=== PATIENT | female | born 1970 | race African-American/Black ===

== ENCOUNTER 2016-06-13 11:10 | Inpatient (IN) | payer OTHER ==
[~2016-06-13] VITALS: Ht 162.6 cm; Wt 160.0 kg
[~2016-06-13 11:10] MED LIST: CARV12.5 PO; CLIN1CAP5 PO; FURO1TAB62 PO; GLIP5TAB8 PO; HYDR-3533 PO; IBUP800T23 PO; MAGICADU2 SWISH-SWAL; SIMV40TA PO
--- NOTE | 2016-06-13 11:25 | PD ---
HPI Chief Complaint: flank pain Time Seen by Provider: 11:25 Travel History International Travel<30 days: No Contact w/Intl Traveler<30days: No History of Present Illness HPI 46-year-old female with PMH of HTN, HLD, T2DM presents to the ED via EMS for evaluation of 3 day history of constant right-sided flank pain. Gradual onset. She endorses accompanying chills, nausea and right upper quadrant abdominal pain. Patient states this pain is similar to previous urinary tract infection. Also complains of increased swelling of the left lower extremity. Endorses increased walking daily. She denies chest pain, shortness of breath, anorexia, changes in bowel habits, dysuria. She takes 20 mg Lasix daily. Primary care provider is Dr. Tuttle. [facility] Past Medical History Cardiovascular Problems: Yes (HTN) High Cholesterol: Yes Diabetes: Yes Diminished Hearing: No Hypertension: Yes Tubal Ligation: Yes Past Surgical History Section: Yes Social History Alcohol Use: No Tobacco Use: No Substance Use: No Allergies-Medications (Allergen,Severity, Reaction): Coded Allergies: No Known Allergies (Unverified , 02/22/16) Reported Meds & Prescriptions Reported Meds & Active Scripts Active Reported Glipizide 5 Mg Tab 2.5 Mg PO BIDAC Take 30 minutes before a meal Simvastatin 40 Mg Tab 40 Mg PO HS Lasix (Furosemide) 20 Mg Tab 20 Mg PO DAILY Coreg (Carvedilol) 12.5 Mg Tab 12.5 Mg PO BID Review of Systems Except as stated in HPI: all other systems reviewed are Neg Physical Exam Narrative GENERAL: Well-developed obese black female lying on stretcher in no acute distress.. SKIN: Focused skin assessment warm/dry. HEAD: Normocephalic. EYES: No scleral icterus. No injection or drainage. NECK: Supple, trachea midline. No JVD or lymphadenopathy. CARDIOVASCULAR: Regular rate and rhythm without murmurs, gallops, or rubs. RESPIRATORY: Breath sounds clear and equal bilaterally. No accessory muscle use. GASTROINTESTINAL: Abdomen soft, protuberant, nondistended. Tender to palpation on the right upper quadrant. Active bowel sounds. MUSCULOSKELETAL: No cyanosis. 2+ edema in the bilateral lower extremities. Left greater than right. Left side is erythematous, warm, tender to palpation. Positive Homans sign. BACK: No obvious deformity. ++ CVA tenderness. Data Data Last Documented VS Vital Signs Date Time Temp Pulse Resp B/P Pulse Ox O2 Delivery O2 Flow Rate FiO2 06/13/16 15:22 100 Room Air 06/13/16 15:17 99.7 94 18 130/59 Orders Complete Blood Count With Diff (06/13/16 11:37) Comprehensive Metabolic Panel (06/13/16 11:37) Lipase (06/13/16 11:37) Urinalysis - C+S If Indicated (06/13/16 11:37) Ct Abd/Pel W/O Iv Contrast (06/13/16 11:37) Iv Access Insert/Monitor (06/13/16 11:37) Ecg Monitoring (06/13/16 11:37) Oximetry (06/13/16 11:37) Morphine Inj (Morphine Inj) (06/13/16 11:45) Ondansetron Inj (Zofran Inj) (06/13/16 11:45) Sodium Chlor 0.9% 1000 Ml Inj (Ns 1000 M (06/13/16 11:37) Sodium Chloride 0.9% Flush (Ns Flush) (06/13/16 11:45) Us Leg Venous Doppler (06/13/16 11:37) Lactic Acid Sepsis Protocol (06/13/16 15:35) Piperacil-Tazo 4.5 Gm Premix (Zosyn 4.5 (06/13/16 15:36) Vancomycin Inj (Vancomycin Inj) (06/13/16 15:36) Acetaminophen (Tylenol) (06/13/16 15:45) Sodium Chlor 0.9% 1000 Ml Inj (Ns 1000 M (06/13/16 15:36) Sodium Chlor 0.9% 1000 Ml Inj (Ns 1000 M (06/13/16 15:36) Sodium Chlor 0.9% 1000 Ml Inj (Ns 1000 M (06/13/16 15:36) Carvedilol (Coreg) (06/13/16 21:00) Pravastatin (Pravachol) (06/13/16 21:00) Blood Culture (06/13/16 16:13) Code Status (06/13/16 16:11) Vital Signs (Adult) Q4H (06/13/16 16:11) Activity Oob Ad Sara (06/13/16 16:11) Bedside Glucose ADRIAN.AC&HS (06/13/16 16:11) Salon Customer Experience Specialist / Telemetry .CONTINUOUS (06/13/16 16:11) Intake + Output ADRIAN.QSHIFT (06/13/16 16:11) ^ Notify Dr: Other (06/13/16 16:11) Diet 1800 Ada Cons Carb (06/13/16 Dinner) Diet Heart Healthy (06/13/16 Dinner) Sodium Chlor 0.9% 1000 Ml Inj (Ns 1000 M (06/13/16 16:11) Sodium Chloride 0.9% Flush (Ns Flush) (06/13/16 16:15) Sodium Chloride 0.9% Flush (Ns Flush) (06/13/16 21:00) Acetaminophen (Tylenol) (06/13/16 16:15) Ondansetron Inj (Zofran Inj) (06/13/16 16:15) Bisacodyl Supp (Dulcolax Supp) (06/13/16 16:15) Docusate Sodium (Colace) (06/13/16 16:15) Basic Metabolic Panel (Bmp) (06/14/16 06:00) Complete Blood Count With Diff (06/14/16 06:00) Prothrombin Time / Inr (Pt) (06/14/16 06:00) Enoxaparin Inj (Lovenox Inj) (06/13/16 16:15) Naloxone Inj (Narcan Inj) (06/13/16 16:15) Admit Order (Ed Use Only) (06/13/16 ) Admit To Inpatient (06/13/16 ) Sodium Chloride 0.9% Flush (Ns Flush) (06/13/16 16:15) Sodium Chloride 0.9% Flush (Ns Flush) (06/13/16 21:00) Naloxone Inj (Narcan Inj) (06/13/16 16:15) Inpatient Certification (06/13/16 ) Vancomycin Consult Pharmacy (Vancomycin (06/13/16 16:15) Piperacil-Tazo 3.375 Gm Premix (Zosyn 3. (06/13/16 16:15) Labs Laboratory Tests Test 06/13/16 06/13/16 15:05 15:55 White Blood Count 21.0 TH/MM3 Red Blood Count 4.59 MIL/MM3 Hemoglobin 11.9 GM/DL Hematocrit 37.2 % Mean Corpuscular Volume 81.1 FL Mean Corpuscular Hemoglobin 26.0 PG Mean Corpuscular Hemoglobin 32.1 % Concent Red Cell Distribution Width 15.6 % Platelet Count 196 TH/MM3 Mean Platelet Volume 9.7 FL Neutrophils (%) (Auto) 88.9 % Lymphocytes (%) (Auto) 7.6 % Monocytes (%) (Auto) 3.2 % Eosinophils (%) (Auto) 0.0 % Basophils (%) (Auto) 0.3 % Neutrophils # (Auto) 18.6 TH/MM3 Lymphocytes # (Auto) 1.6 TH/MM3 Monocytes # (Auto) 0.7 TH/MM3 Eosinophils # (Auto) 0.0 TH/MM3 Basophils # (Auto) 0.1 TH/MM3 CBC Comment DIFF FINAL Differential Comment Sodium Level 134 MEQ/L Potassium Level 3.7 MEQ/L Chloride Level 100 MEQ/L Carbon Dioxide Level 25.7 MEQ/L Anion Gap 8 MEQ/L Blood Urea Nitrogen 9 MG/DL Creatinine 0.98 MG/DL Estimat Glomerular Filtration 75 ML/MIN Rate Random Glucose 287 MG/DL Calcium Level 9.3 MG/DL Total Bilirubin 1.1 MG/DL Aspartate Amino Transf 7 U/L (AST/SGOT) Alanine Aminotransferase 14 U/L (ALT/SGPT) Alkaline Phosphatase 79 U/L Total Protein 7.7 GM/DL Albumin 3.0 GM/DL Lipase 65 U/L Lactic Acid Level 2.0 mmol/L MDM Medical Decision Making Medical Screen Exam Complete: Yes Emergency Medical Condition: Yes Differential Diagnosis Pyelonephritis versus nephroureterolithiasis versus cholecystitis versus DVT versus dependent edema versus cellulitis versus other Narrative Course 46-year-old female with PMH of HTN, HLD, T2DM presents to the ED via EMS for evaluation of 3 day history of constant right-sided flank pain. Gradual onset, accompanied by chills, nausea and right upper quadrant abdominal pain. Also complains of increased swelling of the left lower extremity. Endorses increased walking daily. She denies chest pain, shortness of breath, anorexia, changes in bowel habits, dysuria. PCP is Dr. Tuttle. Vitals reviewed. Physical exam reveals a nontoxic appearing obese black female in no acute distress. There is RUQ, right flank and right CVA tenderness to palpation. There is erythema, warmth, 2+ edema in BLE, L>>R. ++ left sided Hohmann sign. Otherwise unremarkable. 1 liter NS fluid bolus, 4 mg morphine, 4 mg zofran IV. CBC: WBC 21 with left shift CMP: glucose 287 Lipase: 65 Lactic: 2.0 UA: pending CT abd/pelvis: 1. No evidence of acute abdominal or pelvic process. No masses identified. 2. Uterine fibroids. Results per radiology read. US of LLE: negative for DVT per radiology read. Patient meets sepsis criteria. Additional fluid bolus, blood cultures, Vancomycin and Zosyn ordered. On recheck the patient is sleeping on the stretcher. She reports "some" improvement of her pain. I discussed the results of the lab work with the patient. She is agreeable to admission. Call placed to [facility]. Dr. Sherwood spoke with Dr. Thompson who agrees to accept the patient to the medicine service. Please see medicine notes for disposition. Sepsis Criteria SIRS Criteria (2 or more): Heart rate over 90, WBC > 11732, < 4000 or > 10% bands Sepsis Criteria (SIRS+source): Infect source susp/known Diagnosis Primary Impression: Cellulitis of left lower extremity Additional Impression: Sepsis Qualified Code: A41.9 - Sepsis, due to unspecified organism Ashia León Jun 13, 2016 11:25
[2016-06-13] MEDS ORDERED: SODIUM CHLOR 0.9% 1000 ML INJ 1,000 ML IV SCH (11:37)
[2016-06-13] MEDS ORDERED: ONDANSETRON HCL 4 MG/2 ML VIAL IVP ONE (11:45)
[2016-06-13] MEDS ORDERED: SODIUM CHLORIDE 0.9% FLUSH 10 ML FLUSH IV FLUSH PRN ×3 (11:45→16:15)
[2016-06-13] MEDS ORDERED: MORPHINE SULFATE 4 MG/ML INJ IV PUSH ONE (11:45)
--- NOTE | 2016-06-13 12:40 | RADRPT ---
EXAM DATE/TIME: 06/13/2016 11:59 [facility] COMPARISON: No previous studies available for comparison. INDICATIONS : Left leg edema and pain. MEDICAL HISTORY : Hypercholesterolemia. Hypertension. Diabetes. SURGICAL HISTORY : Tubal ligation. section. ENCOUNTER: Initial ACUITY: 1 day PAIN SCORE: 8/10 LOCATION: Left leg. TECHNIQUE: Venous ultrasound of the leg was performed from the inguinal ligament to the proximal calf. Real-ashkan e, color Doppler and spectral tracing, compression and augmentation techniques were used. FINDINGS: There is normal compressibility of the deep venous system from the inguinal region to the proximal ca lf. No echogenic clot is seen in the lumen of the common femoral, femoral, popliteal, and posterior tibial veins. There is a normal response of the venous system to proximal and distal augmentation an d respiration. CONCLUSION: No evidence of left lower extremity DVT. Cesar Emanuel MD on June 13, 2016 at 12:37 Board Certified Radiologist. This report was verified electronically.
--- NOTE | 2016-06-13 13:40 | RADRPT ---
EXAM DATE/TIME: 06/13/2016 12:47 [facility] COMPARISON: No previous studies available for comparison. INDICATIONS : Right upper quadrant and flank pain ORAL CONTRAST: No oral contrast ingested. RADIATION DOSE: 33.87 CTDIvol (mGy) MEDICAL HISTORY : Hypertension. Diabetes SURGICAL HISTORY : Tubal ligation. ENCOUNTER: Initial ACUITY: 3 days PAIN SCALE: 5/10 LOCATION: Right flank TECHNIQUE: Volumetric scanning of the abdomen and pelvis was performed. Using automated exposure control and ad justment of the mA and/or kV according to patient size, radiation dose was kept as low as reasonably achievable to obtain optimal diagnostic quality images. FINDINGS: The visualized portion of the liver and spleen are normal. The gallbladder and pancreas are unremarka ble. No intrahepatic or extrahepatic ductal dilatation is seen. The adrenal glands and kidneys appear normal bilaterally. No hydronephrosis or mass lesions are identified. Multiple phleboliths are seen in the apparent region as well as within the pelvis. No abnormally enlarged lymph nodes are identifie d. The uterus is enlarged measuring 10.6 x 10 CM characteristic of fibroids. No free fluid is identified . There is diastases of the rectus muscles above the symphysis. CONCLUSION: 1. No evidence of acute abdominal or pelvic process. No masses are identified. 2. Uterine fibroids Jamal Contreras MD on June 13, 2016 at 13:32 Board Certified Radiologist. This report was verified electronically.
[2016-06-13 15:17] VITALS: BP 130/59; PULSE 94; RESP 18; TEMP 99.7; O2SAT 100
[2016-06-13 15:22] VITALS: O2SAT 100
[2016-06-13 15:32] LABS: AUTOMATED NEUTROPHIL # 18.6 TH/MM3 (1.8-7.7); BASOPHIL # 0.1 TH/MM3 (0-0.2); BASOPHIL % 0.3 % (0.0-2.0); HEMATOCRIT 37.2 % (35.0-46.0); HEMO FLAGS DIFF FINAL; LYMPH % 7.6 % (9.0-44.0); LYMPHOCYTE # 1.6 TH/MM3 (1.0-4.8); MEAN CELL VOLUME 81.1 FL (80.0-100.0); MEAN CORPUSCULAR HGB CONC 32.1 % (32.0-36.0); MONO % 3.2 % (0.0-8.0); NEUT % 88.9 % (16.0-70.0); PLATELET COUNT 196 TH/MM3 (150-450); RED BLOOD COUNT 4.59 MIL/MM3 (4.00-5.30); RED CELL DISTRIBUTION WIDTH 15.6 % (11.6-17.2)
[2016-06-13] MEDS ORDERED: PIPERACIL-TAZO 4.5 GM PREMIX 100 ML IV STA (15:36)
[2016-06-13] MEDS ORDERED: SODIUM CHLOR 0.9% 1000 ML INJ 1,000 ML IV ONE ×3 (15:36)
[2016-06-13] MEDS ORDERED: VANCOMYCIN INJ 1,000 MG in SODIUM CHLOR 0.9% 250 ML INJ 250 ML IV STA (15:36)
[2016-06-13] MEDS ORDERED: ACETAMINOPHEN 325 MG TAB PO ONE (15:45)
--- NOTE | 2016-06-13 15:48 | PD ---
Physical Exam Date Seen by Provider: Jun 13, 2016 Time Seen by Provider: 15:30 Narrative This is a 46-year-old female with history of hypertension, type 2 diabetes, hyperlipidemia, who presents today with left sided flank pain as well as left sided lower extremity pain and swelling and redness. The patient states that it started swelling yesterday. She denies any fevers although states that she has been warm and normal. Data Data Last Documented VS Vital Signs Date Time Temp Pulse Resp B/P Pulse Ox O2 Delivery O2 Flow Rate FiO2 06/13/16 15:22 100 Room Air 06/13/16 15:17 94 18 130/59 Orders Complete Blood Count With Diff (06/13/16 11:37) Comprehensive Metabolic Panel (06/13/16 11:37) Lipase (06/13/16 11:37) Urinalysis - C+S If Indicated (06/13/16 11:37) Ct Abd/Pel W/O Iv Contrast (06/13/16 11:37) Iv Access Insert/Monitor (06/13/16 11:37) Ecg Monitoring (06/13/16 11:37) Oximetry (06/13/16 11:37) Morphine Inj (Morphine Inj) (06/13/16 11:45) Ondansetron Inj (Zofran Inj) (06/13/16 11:45) Sodium Chlor 0.9% 1000 Ml Inj (Ns 1000 M (06/13/16 11:37) Sodium Chloride 0.9% Flush (Ns Flush) (06/13/16 11:45) Us Leg Venous Doppler (06/13/16 11:37) Lactic Acid Sepsis Protocol (06/13/16 15:35) Piperacil-Tazo 4.5 Gm Premix (Zosyn 4.5 (06/13/16 15:36) Vancomycin Inj (Vancomycin Inj) (06/13/16 15:36) Acetaminophen (Tylenol) (06/13/16 15:45) Sodium Chlor 0.9% 1000 Ml Inj (Ns 1000 M (06/13/16 15:36) Sodium Chlor 0.9% 1000 Ml Inj (Ns 1000 M (06/13/16 15:36) Sodium Chlor 0.9% 1000 Ml Inj (Ns 1000 M (06/13/16 15:36) Labs Laboratory Tests Test 06/13/16 15:05 White Blood Count 21.0 TH/MM3 Red Blood Count 4.59 MIL/MM3 Hemoglobin 11.9 GM/DL Hematocrit 37.2 % Mean Corpuscular Volume 81.1 FL Mean Corpuscular Hemoglobin 26.0 PG Mean Corpuscular Hemoglobin 32.1 % Concent Red Cell Distribution Width 15.6 % Platelet Count 196 TH/MM3 Mean Platelet Volume 9.7 FL Neutrophils (%) (Auto) 88.9 % Lymphocytes (%) (Auto) 7.6 % Monocytes (%) (Auto) 3.2 % Eosinophils (%) (Auto) 0.0 % Basophils (%) (Auto) 0.3 % Neutrophils # (Auto) 18.6 TH/MM3 Lymphocytes # (Auto) 1.6 TH/MM3 Monocytes # (Auto) 0.7 TH/MM3 Eosinophils # (Auto) 0.0 TH/MM3 Basophils # (Auto) 0.1 TH/MM3 CBC Comment DIFF FINAL Differential Comment MDM Medical Record Reviewed: Yes Supervised Visit with SCOTTY: Yes Differential Diagnosis 46-year-old female with history of hypertension, hyperlipidemia, type 2 diabetes mellitus, and presents today with complaints of right sided flank pain and left lower extremity swelling and redness and pain. The patient had an ultrasound that showed no evidence of acute DVT noted in her left lower extremity. The patient has what appears to be cellulitis. Her white count is 21,000. Pulse is greater than 90. She does meet SIRS criteria at this time. She'll be started on Zosyn and Vanco. CT scan of the and pelvis shows no evidence of acute findings. We're still waiting her LFTs and urinalysis results. Sepsis Criteria SIRS Criteria (2 or more): Heart rate over 90, WBC > 66740, < 4000 or > 10% bands Sepsis Criteria (SIRS+source): Infect source susp/known Diagnosis Primary Impression: Cellulitis of left lower extremity Additional Impressions: Right flank pain Right upper quadrant pain Diabetes mellitus Morbid obesity Boyd Sherwood MD Jun 13, 2016 15:48
[2016-06-13 16:15] LABS: ALT (GPT) 14 U/L (10-53); ANION GAP 8 MEQ/L (5-15); AST (GOT) 7 U/L (15-37); BICARBONATE 25.7 MEQ/L (21.0-32.0); BLOOD UREA NITROGEN 9 MG/DL (7-18); CHLORIDE 100 MEQ/L (98-107); GLOMERULAR FILTRATION RATE 75 ML/MIN (>89); POTASSIUM 3.7 MEQ/L (3.5-5.1); SODIUM (NA) 134 MEQ/L (136-145)
[2016-06-13] MEDS ORDERED: BISACODYL 10 MG SUPP PR PRN (16:15)
[2016-06-13] MEDS ORDERED: Vancomycin Consult Pharmacy 1 EA OTHER SCH (16:15)
[2016-06-13] MEDS ORDERED: ACETAMINOPHEN 325 MG TAB PO PRN (16:15)
[2016-06-13] MEDS ORDERED: NALOXONE HCL 0.4 MG/ML AMP IV PRN ×2 (16:15)
[2016-06-13 16:17] LABS: ALKALINE PHOSPHATASE 79 U/L (45-117); TOTAL BILIRUBIN ADULT 1.1 MG/DL (0.2-1.0)
--- NOTE | 2016-06-13 16:19 | HHI.HP ---
[facility] M.D. Admission Diagnosis sepsis, cellulitis LLE Diagnoses: Chief Complaint: left Leg Cellulitis Travel History International Travel<30 Days: No Contact w/Intl Traveler <30 Da: No Traveled to Known Affected Are: No History of Present Illness 46-year-old female with PMH of HTN, HLD, T2DM presents to the ED via EMS for evaluation of 3 day history of constant right-sided flank pain. Gradual onset. She endorses accompanying chills, nausea and right upper quadrant abdominal pain. Patient states this pain is similar to previous urinary tract infection. Also complains of increased swelling of the left lower extremity. Endorses increased walking daily. She denies chest pain, shortness of breath, anorexia, changes in bowel habits, dysuria. She takes 20 mg Lasix daily. Primary care provider is Dr. Tuttle. As per patient states she woke up this morning with left leg pain and was erythematous and with worsening edema, she went to see her PCP who sent her to ER for evaluation. she has low grade fever. Past Family Social History Past Medical History Hypertension Hyperlipidemia DM II Past Surgical History Tubal Ligation C Section Reported Medications Reported Meds & Active Scripts Active Reported Glipizide 5 Mg Tab 2.5 Mg PO BIDAC Take 30 minutes before a meal Simvastatin 40 Mg Tab 40 Mg PO HS Lasix (Furosemide) 20 Mg Tab 20 Mg PO DAILY Coreg (Carvedilol) 12.5 Mg Tab 12.5 Mg PO BID Allergies: Coded Allergies: No Known Allergies (Unverified , 02/22/16) Active Ordered Medications Current Medications Medications (Trade) Dose Ordered Sig/Maykel Route Start Time Stop Time Status Last Admin Sodium Chloride 2 ml 2 ml UNSCH PRN IV FLUSH 06/13/16 11:45 Sodium Chloride 1,000 ml @ 1,000 mls/hr Q1H ONCE IV 06/13/16 15:36 06/13/16 16:35 06/13/16 15:51 Sodium Chloride 1,000 ml @ 1,000 mls/hr Q1H ONCE IV 06/13/16 15:36 06/13/16 16:35 (NS 1000 ml Inj) 1,000 ml @ 1,000 mls/hr Q1H ONCE IV 06/13/16 15:36 06/13/16 16:35 (Coreg) 12.5 mg BID PO 06/13/16 21:00 Pravastatin Sodium 80 mg 80 mg HS PO 06/13/16 21:00 (NS 1000 ml Inj) 1,000 ml @ 100 mls/hr Q10H IV 06/13/16 16:11 UNV (NS Flush) 2 ml UNSCH PRN IV FLUSH 06/13/16 16:15 UNV (NS Flush) 2 ml BID IV FLUSH 06/13/16 21:00 UNV (Tylenol) 650 mg Q4H PRN PO 06/13/16 16:15 UNV (Zofran Inj) 4 mg Q6H PRN IVP 06/13/16 16:15 UNV (Dulcolax Supp) 10 mg DAILY PRN CO 06/13/16 16:15 UNV (Colace) 100 mg Q12H PO 06/13/16 16:15 UNV (Lovenox Inj) 40 mg Q24H SQ 06/13/16 16:15 UNV (Narcan Inj) 0.4 mg UNSCH PRN IV 06/13/16 16:15 UNV (NS Flush) 2 ml UNSCH PRN IV FLUSH 06/13/16 16:15 UNV (NS Flush) 2 ml BID IV FLUSH 06/13/16 21:00 UNV (Narcan Inj) 0.4 mg UNSCH PRN IV 06/13/16 16:15 UNV Family History Mother with DM II and Hypertension Social History Lives with her and denies any toxic habit. Physical Exam Vital Signs Vital Signs Date Time Temp Pulse Resp B/P Pulse Ox O2 Delivery O2 Flow Rate FiO2 06/13/16 15:22 100 Room Air 06/13/16 15:17 99.7 94 18 130/59 100 Room Air Physical Exam GENERAL: Morbid Obese patient in no acute distress. SKIN: Focused skin assessment warm/dry. HEAD: Normocephalic. EYES: No scleral icterus. No injection or drainage. NECK: Supple, trachea midline. No JVD or lymphadenopathy. CARDIOVASCULAR: Regular rate and rhythm without murmurs, gallops, or rubs. RESPIRATORY: Breath sounds clear and equal bilaterally. No accessory muscle use. GASTROINTESTINAL: Abdomen soft, protuberant, nondistended. Tender to palpation on the right upper quadrant. Active bowel sounds. MUSCULOSKELETAL: No cyanosis. 2+ edema in the bilateral lower extremities. Left greater than right. Left side is erythematous, warm, tender to palpation. Positive Homans sign. BACK: No obvious deformity. ++ CVA tenderness. Laboratory Laboratory Tests Test 06/13/16 15:05 White Blood Count 21.0 Red Blood Count 4.59 Hemoglobin 11.9 Hematocrit 37.2 Mean Corpuscular Volume 81.1 Mean Corpuscular Hemoglobin 26.0 Mean Corpuscular Hemoglobin 32.1 Concent Red Cell Distribution Width 15.6 Platelet Count 196 Mean Platelet Volume 9.7 Neutrophils (%) (Auto) 88.9 Lymphocytes (%) (Auto) 7.6 Monocytes (%) (Auto) 3.2 Eosinophils (%) (Auto) 0.0 Basophils (%) (Auto) 0.3 Neutrophils # (Auto) 18.6 Lymphocytes # (Auto) 1.6 Monocytes # (Auto) 0.7 Eosinophils # (Auto) 0.0 Basophils # (Auto) 0.1 CBC Comment DIFF FINAL Differential Comment Sodium Level 134 Potassium Level 3.7 Chloride Level 100 Carbon Dioxide Level 25.7 Anion Gap 8 Blood Urea Nitrogen 9 Creatinine 0.98 Estimat Glomerular Filtration 75 Rate Random Glucose 287 Calcium Level 9.3 Aspartate Amino Transf 7 (AST/SGOT) Alanine Aminotransferase 14 (ALT/SGPT) Albumin 3.0 Lipase 65 Result Diagram: 06/13/16 1505 06/13/16 1505 Imaging Last Impressions Lower Extremity Ultrasound 06/13/16 1137 Signed Impressions: Service Date/Time: Monday, June 13, 2016 11:59 - CONCLUSION: No evidence of left lower extremity DVT. Cesar Emanuel MD Abdomen/Pelvis CT 06/13/16 1137 Signed Impressions: Service Date/Time: Monday, June 13, 2016 12:47 - CONCLUSION: 1. No evidence of acute abdominal or pelvic process. No masses are identified. 2. Uterine fibroids Jamal Contreras MD Assessment and Plan Problem List: (1) Cellulitis of left lower extremity ICD Code: L03.116 Status: Acute (2) Diabetes mellitus ICD Code: E11.9 Status: Acute (3) Morbid obesity ICD Code: E66.01 Status: Acute (4) Abdominal pain ICD Code: R10.9 Status: Acute Assessment and Plan 1. Sepsis/Cellulitis of the left lower extremity she has Leukocytosis with left shift, tachycardia, known source of infection, has left leg edema and cellulitis low grade fever, was started on Vancomycin and Zosyn and following blood cultures, US of LLE: negative for DVT per radiology read. 2. Questioned possible foot fracture asked for foot x ray and following result 3. Morbid Obesity will weight loss warranted. recommended diet and exercise as outpatient 4. Abdominal pain had CT abd/pelvis: 1. No evidence of acute abdominal or pelvic process. No masses identified. 2. Uterine fibroids. Results per radiology read. 5. Hypertension to continue Home medicines 6. DM II continue sliding scale on hold Glipizide and continue diet for Diabetes. DVT prophylaxis with Lovenox. Code Status Full Code. Discussed Condition With Patient and ER specialist. Physician Certification 2 Midnight Certification Type: Admission for Inpatient Services Order for Inpatient Services The services are ordered in accordance with Medicare regulations or non- Medicare payer requirements, as applicable. In the case of services not specified as inpatient-only, they are appropriately provided as inpatient services in accordance with the 2-midnight benchmark. Estimated LOS (days): 4 days is the estimated time the patient will need to remain in the hospital, assuming treatment plan goals are met and no additional complications. Post-Hospital Plan: Home Jason Leone MD Jun 13, 2016 16:19
[2016-06-13] MEDS ORDERED: POTASSIUM CHLORIDE 20 MEQ CONTROLLED RELEASE TAB PO ONE (17:15)
--- NOTE | 2016-06-13 17:45 | RADRPT ---
EXAM DATE/TIME: 06/13/2016 17:16 [facility] COMPARISON: No previous studies available for comparison. INDICATIONS : Left foot pain x 1 day no known injury. MEDICAL HISTORY : Hypertension. Diabetes SURGICAL HISTORY : Tubal ligation. ENCOUNTER: Initial ACUITY: 1 day PAIN SCORE: 8/10 LOCATION: Left Foot. FINDINGS: 3 views left foot. Bone alignment within normal limits. No evidence of fracture. Diffuse soft tissue edema. No evidence of bone erosion. Small plantar and Achilles calcaneal spurs. CONCLUSION: Diffuse soft tissue edema. No evidence of fracture. Cesar Emanuel MD on June 13, 2016 at 17:43 Board Certified Radiologist. This report was verified electronically.
[2016-06-13] MEDS ORDERED: MORPHINE SULFATE 4 MG/ML INJ IV ONE (18:00)
[2016-06-13 18:15] LABS: BLOOD, URINE NEG (NEG); COMMENT (UR) CULT NOT INDICATED; CULTURE IF INDICATED CULT NOT INDICATED; GLUCOSE,URINE 1000 mg/dL (NEG); KETONE, URINE NEG (NEG); MUCUS URINE FEW /lpf (OCC); NITRITE,URINE NEG (NEG); SQUAMOUS EPITHELIAL CELL URINE <1 /hpf (0-5); URINE COLOR YELLOW (YELLW/STRAW)
[2016-06-13 18:50] LABS: FREE T4 1.26 NG/DL (0.76-1.46); HDL CHOLESTEROL 80.6 MG/DL (40.0-60.0); LDL CHOLESTEROL 64 MG/DL (0-99)
[2016-06-13 18:53] VITALS: BP 116/53; PULSE 93; RESP 18; O2SAT 97
[2016-06-13 20:00] VITALS: BP 117/71; PULSE 92; RESP 20; TEMP 98.2; O2SAT 97
[2016-06-13] MEDS: ENOXAPARIN SODIUM 40 MG/0.4 ML SYRINGE SQ SCH (20:15)
[2016-06-13] MEDS: SODIUM CHLOR 0.9% 1000 ML INJ 1,000 ML IV SCH ×2 (20:16→21:46)
[2016-06-13 20:32] VITALS: BP 116/58; TEMP 98.9
[2016-06-13] MEDS: SODIUM CHLORIDE 0.9% FLUSH 10 ML FLUSH IV FLUSH SCH (21:00)
[2016-06-13] MEDS ORDERED: SODIUM CHLORIDE 0.9% FLUSH 10 ML FLUSH IV FLUSH SCH (21:00)
[2016-06-13] MEDS: DOCUSATE SODIUM 100 MG CAP PO SCH (21:45)
[2016-06-13] MEDS: CARVEDILOL 12.5 MG TAB PO SCH (21:46)
[2016-06-13] MEDS: INSULIN NovoLIN REGULAR SUPPLEMENTAL SCALE SQ SCH (21:46)
[2016-06-13] MEDS: PRAVASTATIN SOD 80 MG TAB PO SCH (21:46)
[2016-06-13] MEDS: PIPERACIL-TAZO 3.375 GM PREMIX 50 ML IV SCH (21:47)
[2016-06-13 21:54] VITALS: PULSE 93
[2016-06-13] MEDS ORDERED: VANCOMYCIN 1,000 MG/NS 250 ML IV STA ×2 (22:02)
[2016-06-13 22:10] LABS: HEMOGLOBIN A1a 0.9 %; HEMOGLOBIN A1b 2.6 %; HEMOGLOBIN Ao 77.7 %; HEMOGLOBIN LA1C 3.4 %; HEMOGLOBIN P3 5.4 %
[2016-06-13] MEDS: MORPHINE SULFATE 4 MG/ML INJ IV PRN (23:04)
[2016-06-14] MEDS: PIPERACIL-TAZO 3.375 GM PREMIX 50 ML IV SCH ×2 (04:03→11:32)
[2016-06-14 04:56] LABS: INTERNATIONAL NORMALIZED RATIO 1.2 RATIO; PROTHROMBIN TIME - PATIENT 12.8 SEC (9.8-11.6)
[2016-06-14 05:18] LABS: AUTOMATED NEUTROPHIL # 11.7 TH/MM3 (1.8-7.7); BASOPHIL % 0.3 % (0.0-2.0); EOSINOPHIL # 0.1 TH/MM3 (0-0.4); EOSINOPHIL % 1.1 % (0.0-4.0); HEMATOCRIT 30.8 % (35.0-46.0); HEMO FLAGS DIFF FINAL; LYMPH % 9.5 % (9.0-44.0); LYMPHOCYTE # 1.3 TH/MM3 (1.0-4.8); MEAN CELL VOLUME 82.1 FL (80.0-100.0); MEAN CORPUSCULAR HEMOGLOBIN 26.5 PG (27.0-34.0); MEAN CORPUSCULAR HGB CONC 32.3 % (32.0-36.0); MONO % 5.4 % (0.0-8.0); NEUT % 83.7 % (16.0-70.0); PLATELET COUNT 194 TH/MM3 (150-450); RED BLOOD COUNT 3.76 MIL/MM3 (4.00-5.30); RED CELL DISTRIBUTION WIDTH 15.5 % (11.6-17.2)
[2016-06-14 05:23] LABS: BICARBONATE 22.8 MEQ/L (21.0-32.0); POTASSIUM 4.1 MEQ/L (3.5-5.1)
[2016-06-14] MEDS: INSULIN NovoLIN REGULAR SUPPLEMENTAL SCALE SQ SCH ×4 (05:36→20:46)
[2016-06-14] MEDS: DOCUSATE SODIUM 100 MG CAP PO SCH ×2 (07:39→20:34)
[2016-06-14] MEDS: SODIUM CHLORIDE 0.9% FLUSH 10 ML FLUSH IV FLUSH SCH ×2 (07:42→20:36)
[2016-06-14 08:00] VITALS: BP 103/59; PULSE 89; RESP 20; TEMP 96.4; O2SAT 99
--- NOTE | 2016-06-14 08:11 | HHI.PR ---
Subjective Remarks 46-year-old female with PMH of HTN, HLD, T2DM presents to the ED via EMS for evaluation of 3 day history of constant right-sided flank pain. Gradual onset. She endorses accompanying chills, nausea and right upper quadrant abdominal pain. Patient states this pain is similar to previous urinary tract infection. Also complains of increased swelling of the left lower extremity. Endorses increased walking daily. She denies chest pain, shortness of breath, anorexia, changes in bowel habits, dysuria. She takes 20 mg Lasix daily. Primary care provider is Dr. Tuttle. Admitted with diagnosis of Left Leg Cellulitis was started on Vancomycin and Zosyn and asked for ID specialist consult there was not evidence of Left Leg DVT. Seen in her bedroom discussed with nurse Miss Ferraro appreciated input, no new issues, continue with exquisite pain on her left leg, afebrile, no nausea,vomit or diarrhea. Objective Vital Signs Date Time Temp Pulse Resp B/P Pulse Ox O2 Delivery O2 Flow Rate FiO2 06/13/16 21:54 93 06/13/16 20:32 98.9 90 16 116/58 98 06/13/16 20:00 98.2 92 20 117/71 97 06/13/16 18:53 93 18 116/53 97 Room Air 06/13/16 15:22 100 Room Air 06/13/16 15:17 99.7 94 18 130/59 100 Room Air I/O 06/13/16 06/13/16 06/13/16 06/14/16 06/14/16 06/14/16 07:00 15:00 23:00 07:00 15:00 23:00 Intake Total 1120 ml 765 ml Balance 1120 ml 765 ml Intake Oral 120 ml 0 ml IV Total 1000 ml 765 ml # Voids 1 1 Result Diagram: 06/14/16 0355 06/14/16 0418 Imaging Last Impressions Lower Extremity Ultrasound 06/13/167 Signed Impressions: Service Date/Time: Monday, June 13, 2016 11:59 - CONCLUSION: No evidence of left lower extremity DVT. Cesar Emanuel MD Abdomen/Pelvis CT 06/13/16 1137 Signed Impressions: Service Date/Time: Monday, June 13, 2016 12:47 - CONCLUSION: 1. No evidence of acute abdominal or pelvic process. No masses are identified. 2. Uterine fibroids Jamal Contreras MD Foot X-Ray 06/13/16 0000 Signed Impressions: Service Date/Time: Monday, June 13, 2016 17:16 - CONCLUSION: Diffuse soft tissue edema. No evidence of fracture. Cesar Emanuel MD Procedures No procedures performed to the patient Other Results Laboratory Tests Test 06/13/16 06/13/16 06/13/16 06/14/16 15:05 15:55 18:06 03:55 Hemoglobin A1c 9.8 % Total Bilirubin 1.1 MG/DL Aspartate Amino Transf 7 U/L (AST/SGOT) Alanine Aminotransferase 14 U/L (ALT/SGPT) Alkaline Phosphatase 79 U/L Total Protein 7.7 GM/DL Albumin 3.0 GM/DL Triglycerides Level 92 MG/DL Cholesterol Level 163 MG/DL LDL Cholesterol 64 MG/DL HDL Cholesterol 80.6 MG/DL Cholesterol/HDL Ratio 2.02 RATIO Lipase 65 U/L Free Thyroxine 1.26 NG/DL Thyroid Stimulating Hormone 1.240 uIU/ML 3rd Gen Lactic Acid Level 2.0 mmol/L Urine Color YELLOW Urine Turbidity HAZY Urine pH 5.0 Urine Specific [place] 1.025 Urine Protein NEG mg/dL Urine Glucose (UA) 1000 mg/dL Urine Ketones NEG mg/dL Urine Occult Blood NEG Urine Nitrite NEG Urine Bilirubin NEG Urine Urobilinogen LESS THAN 2.0 MG/DL Urine Leukocyte Esterase NEG Urine RBC LESS THAN 1 /hpf Urine WBC 1 /hpf Urine Squamous Epithelial <1 /hpf Cells Urine Mucus FEW /lpf Microscopic Urinalysis Comment CULT NOT INDICATED White Blood Count 14.0 TH/MM3 Red Blood Count 3.76 MIL/MM3 Hemoglobin 10.0 GM/DL Hematocrit 30.8 % Mean Corpuscular Volume 82.1 FL Mean Corpuscular Hemoglobin 26.5 PG Mean Corpuscular Hemoglobin 32.3 % Concent Red Cell Distribution Width 15.5 % Platelet Count 194 TH/MM3 Mean Platelet Volume 9.8 FL Neutrophils (%) (Auto) 83.7 % Lymphocytes (%) (Auto) 9.5 % Monocytes (%) (Auto) 5.4 % Eosinophils (%) (Auto) 1.1 % Basophils (%) (Auto) 0.3 % Neutrophils # (Auto) 11.7 TH/MM3 Lymphocytes # (Auto) 1.3 TH/MM3 Monocytes # (Auto) 0.8 TH/MM3 Eosinophils # (Auto) 0.1 TH/MM3 Basophils # (Auto) 0.0 TH/MM3 CBC Comment DIFF FINAL Differential Comment Prothrombin Time 12.8 SEC Prothromb Time International 1.2 RATIO Ratio Test 06/14/16 04:18 Sodium Level 138 MEQ/L Potassium Level 4.1 MEQ/L Chloride Level 106 MEQ/L Carbon Dioxide Level 22.8 MEQ/L Anion Gap 9 MEQ/L Blood Urea Nitrogen 9 MG/DL Creatinine 1.01 MG/DL Estimat Glomerular Filtration 72 ML/MIN Rate Random Glucose 221 MG/DL Calcium Level 7.8 MG/DL Objective Remarks GENERAL: Morbid Obese patient in no acute distress. SKIN: Focused skin assessment warm/dry. HEAD: Normocephalic. EYES: No scleral icterus. No injection or drainage. NECK: Supple, trachea midline. No JVD or lymphadenopathy. CARDIOVASCULAR: Regular rate and rhythm without murmurs, gallops, or rubs. RESPIRATORY: Breath sounds clear and equal bilaterally. No accessory muscle use. GASTROINTESTINAL: Abdomen soft, protuberant, nondistended. Tender to palpation on the right upper quadrant. Active bowel sounds. MUSCULOSKELETAL: No cyanosis.3+ edema, erythema and changes in calor and rubor on the left foot and ankle. Medications and IVs Current Medications Medications (Trade) Dose Ordered Sig/Maykel Route Start Time Stop Time Status Last Admin (Coreg) 12.5 mg BID PO 06/13/16 21:00 06/13/16 21:46 Pravastatin Sodium 80 mg 80 mg HS PO 06/13/16 21:00 06/13/16 21:46 (NS 1000 ml Inj) 1,000 ml @ 100 mls/hr Q10H IV 06/13/16 16:11 06/13/16 21:46 (Tylenol) 650 mg Q4H PRN PO 06/13/16 16:15 (Zofran Inj) 4 mg Q6H PRN IVP 06/13/16 16:15 (Dulcolax Supp) 10 mg DAILY PRN [place] 06/13/16 16:15 (Colace) 100 mg Q12H PO 06/13/16 21:00 06/14/16 07:39 (Lovenox Inj) 40 mg Q24H SQ 06/13/16 20:00 06/13/16 20:15 (NS Flush) 2 ml UNSCH PRN IV FLUSH 06/13/16 16:15 (NS Flush) 2 ml BID IV FLUSH 06/13/16 21:00 06/14/16 07:42 Naloxone HCl 0.4 mg 0.4 mg UNSCH PRN IV 06/13/16 16:15 Pharmacy Profile Note 0 ml @ 0 mls/hr UNSCH OTHER 06/13/16 16:15 Piperacillin Sod/ Tazobactam Sod 50 ml @ 100 mls/hr Q6H IV 06/13/16 22:00 06/14/16 04:03 (Vancomycin Inj/ NS 500 ml Inj) 515 ml @ 250 mls/hr Q12H IV 06/14/16 09:00 06/14/16 07:44 Miscellaneous Information SPECIFIC LAB TO BE ... ONCE ONCE XX 06/15/16 08:45 06/15/16 08:46 (Roxicodone) 10 mg Q4H PRN PO 06/13/16 22:45 06/14/16 07:40 (Morphine Inj) 4 mg Q3H PRN IV 06/13/16 22:45 06/13/16 23:04 (Roxicodone) 5 mg Q4H PRN PO 06/13/16 22:45 A/P Assessment and Plan 1. Sepsis/Cellulitis of the left lower extremity she has Leukocytosis with left shift, tachycardia, known source of infection, has left leg edema and cellulitis low grade fever, was started on Vancomycin and Zosyn and following blood cultures, US of LLE: negative for DVT per radiology read. also no signs of fracture, asked for ID specialist consult. 2. Ruled out Fracture. 3. Morbid Obesity will weight loss warranted. recommended diet and exercise as outpatient 4. Abdominal pain had CT abd/pelvis: 1. No evidence of acute abdominal or pelvic process. No masses identified. 2. Uterine fibroids. Results per radiology read. 5. Hypertension controlled was held her Coreg in am due to low blood pressure will follow and placed parameters. 6. DM II continue sliding scale, uncontrolled today, started on Levemir 10 units every 12 hours and continue scheduled Novolin 5 units pre meal, Hemoglobin A1C 9.8 Poorly controlled DM II. DVT prophylaxis with Lovenox. Infectious Disease specialist consult placed Blood culture Negative. Discussed with Patient and nurse. Code Status Full Code. Discharge Planning Expected in two days. Jason Leone MD Jun 14, 2016 08:11
[2016-06-14] MEDS ORDERED: VANCOMYCIN INJ 1,500 MG in SODIUM CHLORID 0.9% 500 ML INJ 500 ML IV SCH (09:00)
[2016-06-14] MEDS: CARVEDILOL 12.5 MG TAB PO SCH ×2 (09:00→20:35)
[2016-06-14] MEDS: INSULIN DETEMIR 100 UNITS/ML VIAL SQ SCH ×2 (09:00→20:46)
[2016-06-14] MEDS: INSULIN HUMAN REGULAR 1,000 UNITS/10 ML VIAL SQ SCH ×2 (11:40→17:00)
[2016-06-14 12:00] VITALS: BP 117/66; PULSE 89; RESP 17; TEMP 98; O2SAT 98
[2016-06-14] MEDS: SODIUM CHLOR 0.9% 1000 ML INJ 1,000 ML IV SCH ×2 (12:11→20:38)
--- NOTE | 2016-06-14 12:20 | PD.CONS ---
History of Present Illness Service Infectious disease Consult Requested By Dr Sanya Thompson Reason for Consult Evaluate patient with left lower extremity cellulitis Primary Care Physician Karen Tuttle M.D. Diagnoses: History of Present Illness Patient seen and examined. Records reviewed. Patient is a 46-year-old female presents to the hospital with an acute onset of swelling and pain in her left leg. Patient reportedly had some chills the night prior to admission. Patient had a prior doctor's appointment with her primary care physician for a yearly physical. Her primary care physician saw her leg and told her to go to the emergency room for further evaluation and treatment. As no documented fevers. In the emergency room, she also mentioned that she was having pain in her right lower quadrant that goes to her back. Has been going on for at least 3-4 days. She denies any dysuria or any frequency. Patient denies any prior history of trauma to her left lower extremity. She's been a diabetic but she doesn't really get any kind of care. She denies any sore throat or any respiratory complaint. She had some nausea on the day of admission but denies any vomiting. On presentation she has had normal temperatures. Her WBC was initially 21,000, and it's down to 14,000. Ultrasound did not show any DVT. She also had a CT of the abdomen and pelvis which was unremarkable. Urinalysis was normal. Adding IV vancomycin and Zosyn. She has no prior history of cellulitis in her lower extremity. Patient has chronic lower extremity edema. Infectious disease consultation is requested to evaluate the patient. Review of Systems Constitutional: COMPLAINS OF: Chills, DENIES: Fever, Night Sweats Eyes: DENIES: Eye pain Ears, nose, mouth, throat: DENIES: Vertigo, Oral lesions, Throat pain, Running Nose, Sinus Pain, Toothache Respiratory: DENIES: Cough, Shortness of breath Cardiovascular: DENIES: Chest pain, Palpitations, Syncope Gastrointestinal: COMPLAINS OF: Abdominal pain, Nausea, DENIES: Diarrhea, Vomiting, Difficulty Swallowing, Anorexia Genitourinary: DENIES: Urinary frequency, Urgency, Dysuria Musculoskeletal: COMPLAINS OF: Back pain, DENIES: Joint pain, Joint Swelling, Neck pain Integumentary: DENIES: Rash Immunologic/allergic: DENIES: Urticaria Neurologic: DENIES: Headache, Localized weakness Psychiatric: DENIES: Anxiety, Hallucinations Past Family Social History Allergies: Coded Allergies: No Known Allergies (Unverified , 02/22/16) Past Medical History Hypertension Hyperlipidemia DM II 4 pregnancies and section Past Surgical History Tubal Ligation C Section Active Ordered Medications Tylenol Dulcolax Coreg Colace Lovenox Insulin Morphine Zofran Oxycodone Zosyn Pravachol Vancomycin Social History , has 4 grown kids No smoking Alcohol abuse No illicit drugs Physical Exam Vital Signs Vital Signs Date Time Temp Pulse Resp B/P Pulse Ox O2 Delivery O2 Flow Rate FiO2 06/14/16 08:00 96.4 89 20 103/59 99 06/13/16 21:54 93 06/13/16 20:32 98.9 90 16 116/58 98 06/13/16 20:00 98.2 92 20 117/71 97 06/13/16 18:53 93 18 116/53 97 Room Air 06/13/16 15:22 100 Room Air 06/13/16 15:17 99.7 94 18 130/59 100 Room Air Physical Exam GENERAL: This is a morbidly obese, well-developed female, awake and alert, in no apparent distress. SKIN: Cool and dry. No generalized rash or ecchymosis. HEAD: Atraumatic. Normocephalic. No temporal or scalp tenderness. EYES: [place] conjunctivae. Pupils equal round and reactive. Extraocular motions intact. No scleral icterus. No injection or drainage. ENT: Nose without bleeding, or purulent drainage. Moist oral mucosa. Throat without erythema, tonsillar hypertrophy or exudate. Uvula midline. Airway patent. NECK: Trachea midline. No JVD or lymphadenopathy. Supple, nontender, no meningeal signs. CARDIOVASCULAR: Regular rate and rhythm without murmurs, gallops, or rubs. RESPIRATORY: Clear to auscultation. Breath sounds equal bilaterally. No wheezes , rales, or rhonchi. Decreased breath sounds at the bases. GASTROINTESTINAL: Abdomen obese, soft, non-tender, nondistended. Bowel sounds are present. She has a midline scar compatible with her surgical history. Difficult to examine for any organomegaly due to the size. No guarding or rebound. MUSCULOSKELETAL: Lower extremities without clubbing, cyanosis. HAs edema BILE. LLE has erythema in left leg. No joint effusion. No open wounds, has moisture between all toes L foot; R foot ok. No calf tenderness. NEUROLOGICAL: Awake and alert. Cranial nerves II through XII intact. Motor and sensory grossly within normal limits. Five out of 5 muscle strength in all muscle groups. Normal speech. PSYCH: Normal affect, calm and cooperative. LINE: PIV with no evidence of infection Laboratory Laboratory Tests Test 06/13/16 06/13/16 06/13/16 06/14/16 15:05 15:55 18:06 03:55 White Blood Count 21.0 14.0 Red Blood Count 4.59 3.76 Hemoglobin 11.9 10.0 Hematocrit 37.2 30.8 Mean Corpuscular Volume 81.1 82.1 Mean Corpuscular Hemoglobin 26.0 26.5 Mean Corpuscular Hemoglobin 32.1 32.3 Concent Red Cell Distribution Width 15.6 15.5 Platelet Count 196 194 Mean Platelet Volume 9.7 9.8 Neutrophils (%) (Auto) 88.9 83.7 Lymphocytes (%) (Auto) 7.6 9.5 Monocytes (%) (Auto) 3.2 5.4 Eosinophils (%) (Auto) 0.0 1.1 Basophils (%) (Auto) 0.3 0.3 Neutrophils # (Auto) 18.6 11.7 Lymphocytes # (Auto) 1.6 1.3 Monocytes # (Auto) 0.7 0.8 Eosinophils # (Auto) 0.0 0.1 Basophils # (Auto) 0.1 0.0 CBC Comment DIFF FINAL DIFF FINAL Differential Comment Sodium Level 134 Potassium Level 3.7 Chloride Level 100 Carbon Dioxide Level 25.7 Anion Gap 8 Blood Urea Nitrogen 9 Creatinine 0.98 Estimat Glomerular Filtration 75 Rate Random Glucose 287 Hemoglobin A1c 9.8 Calcium Level 9.3 Total Bilirubin 1.1 Aspartate Amino Transf 7 (AST/SGOT) Alanine Aminotransferase 14 (ALT/SGPT) Alkaline Phosphatase 79 Total Protein 7.7 Albumin 3.0 Triglycerides Level 92 Cholesterol Level 163 LDL Cholesterol 64 HDL Cholesterol 80.6 Cholesterol/HDL Ratio 2.02 Lipase 65 Free Thyroxine 1.26 Thyroid Stimulating Hormone 1.240 3rd Gen Lactic Acid Level 2.0 Urine Color YELLOW Urine Turbidity HAZY Urine pH 5.0 Urine Specific [place] 1.025 Urine Protein NEG Urine Glucose (UA) 1000 Urine Ketones NEG Urine Occult Blood NEG Urine Nitrite NEG Urine Bilirubin NEG Urine Urobilinogen LESS THAN 2.0 Urine Leukocyte Esterase NEG Urine RBC LESS THAN 1 Urine WBC 1 Urine Squamous Epithelial <1 Cells Urine Mucus FEW Microscopic Urinalysis Comment CULT NOT INDICATED Prothrombin Time 12.8 Prothromb Time International 1.2 Ratio Test 06/14/16 04:18 Sodium Level 138 Potassium Level 4.1 Chloride Level 106 Carbon Dioxide Level 22.8 Anion Gap 9 Blood Urea Nitrogen 9 Creatinine 1.01 Estimat Glomerular Filtration 72 Rate Random Glucose 221 Calcium Level 7.8 Date/Time Procedure Status Source Growth 06/13/16 16:15 Aerobic Blood Culture - Preliminary Resulted Blood Line NO GROWTH IN 1 DAY 06/13/16 16:15 Anaerobic Blood Culture - Preliminary Resulted Blood Line NO GROWTH IN 1 DAY Result Diagram: 06/14/16 0355 06/14/16 0418 Imaging RADIOLOGY STUDIES/FILMS REVIEWED Lower Extremity Ultrasound 06/13/16 1137 Signed Impressions: Service Date/Time: Monday, June 13, 2016 11:59 - CONCLUSION: No evidence of left lower extremity DVT. Cesar Emanuel MD Abdomen/Pelvis CT 06/13/16 1137 Signed Impressions: Service Date/Time: Monday, June 13, 2016 12:47 - CONCLUSION: 1. No evidence of acute abdominal or pelvic process. No masses are identified. 2. Uterine fibroids Jamal Contreras MD Foot X-Ray 06/13/16 0000 Signed Impressions: Service Date/Time: Monday, June 13, 2016 17:16 - CONCLUSION: Diffuse soft tissue edema. No evidence of fracture. Cesar Emanuel MD Assessment and Plan Assessment and Plan IMPRESSION Acute onset LLE redness, pain and swelling, with preceding chills typical of Strep infection - no open wounds - has moisture between toes and possible opening for infection Morbid obesity DM RECOMMENDATION IV Ancef Stop other Abx Patient instructed that she is to follow-up with a spray painting machine operator, to have regular care since she is diabetic and she is not really able to monitor both feet due to her obesity Patient also instructed that she needs to consider seriously about getting into a weight loss program which should help with her diabetes control Monitor progress If improving on Ancef, then she can be switched to oral Keflex and discharge, and complete treatment at home I will follow along with you Thank you for this consultation Discussed Condition With Explained plan recommendation to the patient Anya Victor MD Jun 14, 2016 12:20
[2016-06-14] MEDS: ceFAZolin 2 GM PREMIX 50 ML IV SCH ×2 (15:53→20:34)
[2016-06-14 16:00] VITALS: BP 121/63; PULSE 93; RESP 26; TEMP 97.1; O2SAT 99
[2016-06-14 20:00] VITALS: BP 115/63; PULSE 86; RESP 18; TEMP 98; O2SAT 97
[2016-06-14 20:03] VITALS: PULSE 91
[2016-06-14] MEDS: ENOXAPARIN SODIUM 40 MG/0.4 ML SYRINGE SQ SCH (20:34)
[2016-06-14] MEDS: PRAVASTATIN SOD 80 MG TAB PO SCH (20:35)
[2016-06-15] VITALS: BP 109/62; PULSE 82; RESP 17; TEMP 97.4; O2SAT 97
[2016-06-15] MEDS: ceFAZolin 2 GM PREMIX 50 ML IV SCH ×3 (04:39→20:25)
[2016-06-15] MEDS: INSULIN NovoLIN REGULAR SUPPLEMENTAL SCALE SQ SCH ×4 (04:43→20:29)
--- NOTE | 2016-06-15 07:44 | HHI.PR ---
Subjective Remarks 46-year-old female with PMH of HTN, HLD, T2DM presents to the ED via EMS for evaluation of 3 day history of constant right-sided flank pain. Gradual onset. She endorses accompanying chills, nausea and right upper quadrant abdominal pain. Patient states this pain is similar to previous urinary tract infection. Also complains of increased swelling of the left lower extremity. Endorses increased walking daily. She denies chest pain, shortness of breath, anorexia, changes in bowel habits, dysuria. She takes 20 mg Lasix daily. Primary care provider is Dr. Tuttle. 06/15 Seen by ID specialist Vancomycin and Zosyn stopped with impression of typical infection for Streptococcus and started on Ancef seen in the room, continue with painful sensation on her left foot. Objective Vital Signs Date Time Temp Pulse Resp B/P Pulse Ox O2 Delivery O2 Flow Rate FiO2 06/15/16 00:00 97.4 82 17 109/62 97 06/14/16 20:03 91 06/14/16 20:00 98.0 86 18 115/63 97 06/14/16 16:59 16 06/14/16 16:00 97.1 93 26 121/63 99 06/14/16 12:00 98.0 89 17 117/66 98 06/14/16 08:00 96.4 89 20 103/59 99 I/O 06/14/16 06/14/16 06/14/16 06/15/16 06/15/16 06/15/16 07:00 15:00 23:00 07:00 15:00 23:00 Intake Total 765 ml 240 ml 813 ml 1040 ml Balance 765 ml 240 ml 813 ml 1040 ml Intake Oral 0 ml 240 ml 240 ml 240 ml IV Total 765 ml 573 ml 800 ml # Voids 1 4 1 3 # Bowel Movements 1 Result Diagram: 06/14/16 0355 06/14/16 0418 Imaging Last Impressions Lower Extremity Ultrasound 06/13/[id number] Signed Impressions: Service Date/Time: Monday, June 13, 2016 11:59 - CONCLUSION: No evidence of left lower extremity DVT. Cesar Emanuel MD Abdomen/Pelvis CT 06/13/[id number] Signed Impressions: Service Date/Time: Monday, June 13, 2016 12:47 - CONCLUSION: 1. No evidence of acute abdominal or pelvic process. No masses are identified. 2. Uterine fibroids Jamal Contreras MD Foot X-Ray 06/13/16 0000 Signed Impressions: Service Date/Time: Monday, June 13, 2016 17:16 - CONCLUSION: Diffuse soft tissue edema. No evidence of fracture. Cesar Emanuel MD Procedures No procedures performed to the patient Other Results Laboratory Tests Test 06/13/16 06/13/16 06/13/16 06/14/16 15:05 15:55 18:06 03:55 Hemoglobin A1c 9.8 % Total Bilirubin 1.1 MG/DL Aspartate Amino Transf 7 U/L (AST/SGOT) Alanine Aminotransferase 14 U/L (ALT/SGPT) Alkaline Phosphatase 79 U/L Total Protein 7.7 GM/DL Albumin 3.0 GM/DL Triglycerides Level 92 MG/DL Cholesterol Level 163 MG/DL LDL Cholesterol 64 MG/DL HDL Cholesterol 80.6 MG/DL Cholesterol/HDL Ratio 2.02 RATIO Lipase 65 U/L Free Thyroxine 1.26 NG/DL Thyroid Stimulating Hormone 1.240 uIU/ML 3rd Gen Lactic Acid Level 2.0 mmol/L Urine Color YELLOW Urine Turbidity HAZY Urine pH 5.0 Urine Specific [place] 1.025 Urine Protein NEG mg/dL Urine Glucose (UA) 1000 mg/dL Urine Ketones NEG mg/dL Urine Occult Blood NEG Urine Nitrite NEG Urine Bilirubin NEG Urine Urobilinogen LESS THAN 2.0 MG/DL Urine Leukocyte Esterase NEG Urine RBC LESS THAN 1 /hpf Urine WBC 1 /hpf Urine Squamous Epithelial <1 /hpf Cells Urine Mucus FEW /lpf Microscopic Urinalysis Comment CULT NOT INDICATED White Blood Count 14.0 TH/MM3 Red Blood Count 3.76 MIL/MM3 Hemoglobin 10.0 GM/DL Hematocrit 30.8 % Mean Corpuscular Volume 82.1 FL Mean Corpuscular Hemoglobin 26.5 PG Mean Corpuscular Hemoglobin 32.3 % Concent Red Cell Distribution Width 15.5 % Platelet Count 194 TH/MM3 Mean Platelet Volume 9.8 FL Neutrophils (%) (Auto) 83.7 % Lymphocytes (%) (Auto) 9.5 % Monocytes (%) (Auto) 5.4 % Eosinophils (%) (Auto) 1.1 % Basophils (%) (Auto) 0.3 % Neutrophils # (Auto) 11.7 TH/MM3 Lymphocytes # (Auto) 1.3 TH/MM3 Monocytes # (Auto) 0.8 TH/MM3 Eosinophils # (Auto) 0.1 TH/MM3 Basophils # (Auto) 0.0 TH/MM3 CBC Comment DIFF FINAL Differential Comment Prothrombin Time 12.8 SEC Prothromb Time International 1.2 RATIO Ratio Test 06/14/16 04:18 Sodium Level 138 MEQ/L Potassium Level 4.1 MEQ/L Chloride Level 106 MEQ/L Carbon Dioxide Level 22.8 MEQ/L Anion Gap 9 MEQ/L Blood Urea Nitrogen 9 MG/DL Creatinine 1.01 MG/DL Estimat Glomerular Filtration 72 ML/MIN Rate Random Glucose 221 MG/DL Calcium Level 7.8 MG/DL Objective Remarks GENERAL: Morbid Obese patient in no acute distress. SKIN: Focused skin assessment warm/dry. HEAD: Normocephalic. EYES: No scleral icterus. No injection or drainage. NECK: Supple, trachea midline. No JVD or lymphadenopathy. CARDIOVASCULAR: Regular rate and rhythm without murmurs, gallops, or rubs. RESPIRATORY: Breath sounds clear and equal bilaterally. No accessory muscle use. GASTROINTESTINAL: Abdomen soft, protuberant, nondistended. Tender to palpation on the right upper quadrant. Active bowel sounds. MUSCULOSKELETAL: No cyanosis.3+ edema, erythema and changes in calor and rubor on the left foot and ankle. Medications and IVs Current Medications Medications (Trade) Dose Ordered Sig/Maykel Route Start Time Stop Time Status Last Admin (Coreg) 12.5 mg BID PO 06/13/16 21:00 06/14/16 20:35 Pravastatin Sodium 80 mg 80 mg HS PO 06/13/16 21:00 06/14/16 20:35 (NS 1000 ml Inj) 1,000 ml @ 100 mls/hr Q10H IV 06/13/16 16:11 06/14/16 20:38 (Tylenol) 650 mg Q4H PRN PO 06/13/16 16:15 (Zofran Inj) 4 mg Q6H PRN IVP 06/13/16 16:15 (Dulcolax Supp) 10 mg DAILY PRN IN 06/13/16 16:15 (Colace) 100 mg Q12H PO 06/13/16 21:00 06/14/16 20:34 (Lovenox Inj) 40 mg Q24H SQ 06/13/16 20:00 06/14/16 20:34 (NS Flush) 2 ml UNSCH PRN IV FLUSH 06/13/16 16:15 (NS Flush) 2 ml BID IV FLUSH 06/13/16 21:00 06/14/16 20:36 (Narcan Inj) 0.4 mg UNSCH PRN IV 06/13/16 16:15 (Roxicodone) 10 mg Q4H PRN PO 06/13/16 22:45 06/15/16 00:38 (Morphine Inj) 4 mg Q3H PRN IV 06/13/16 22:45 06/13/16 23:04 (Roxicodone) 5 mg Q4H PRN PO 06/13/16 22:45 06/15/16 04:44 (Levemir Inj) 10 units Q12HR SQ 06/14/16 09:00 06/14/16 20:46 Insulin Human Regular 5 units 5 units TIDAC SQ 06/14/16 12:00 06/14/16 17:00 (Ancef 2 Gm Premix) 50 ml @ 100 mls/hr Q8H IV 06/14/16 13:00 06/15/16 04:39 A/P Assessment and Plan 1. Sepsis/Cellulitis of the left lower extremity she has Leukocytosis with left shift, tachycardia, known source of infection, has left leg edema and cellulitis low grade fever, was started on Vancomycin and Zosyn and following blood cultures, US of LLE: negative for DVT per radiology read. also no signs of fracture, asked for ID specialist consult. 2. Ruled out Fracture. 3. Morbid Obesity will weight loss warranted. recommended diet and exercise as outpatient 4. Abdominal pain had CT abd/pelvis: 1. No evidence of acute abdominal or pelvic process. No masses identified. 2. Uterine fibroids. Results per radiology read. 5. Hypertension controlled was held her Coreg in am due to low blood pressure will follow and placed parameters. 6. DM II continue sliding scale, uncontrolled today, started on Levemir 10 units every 12 hours and continue scheduled Novolin 5 units pre meal, Hemoglobin A1C 9.8 Poorly controlled DM II. today better control. DVT prophylaxis with Lovenox. Infectious Disease specialist consult placed Blood culture Negative. Discussed with Patient and nurse. Code Status Full Code. Discharge Planning Expected in two days. Jason Leone MD Jun 15, 2016 07:43
[2016-06-15 08:00] VITALS: BP 113/66; PULSE 80; RESP 17; TEMP 98.1; O2SAT 100
[2016-06-15] MEDS: INSULIN HUMAN REGULAR 1,000 UNITS/10 ML VIAL SQ SCH ×3 (08:00→16:03)
[2016-06-15] MEDS: SODIUM CHLOR 0.9% 1000 ML INJ 1,000 ML IV SCH ×2 (08:11→18:06)
[2016-06-15] MEDS: DOCUSATE SODIUM 100 MG CAP PO SCH ×2 (08:18→20:25)
[2016-06-15] MEDS: CARVEDILOL 12.5 MG TAB PO SCH ×2 (08:18→20:25)
[2016-06-15] MEDS: SODIUM CHLORIDE 0.9% FLUSH 10 ML FLUSH IV FLUSH SCH ×2 (08:19→20:26)
[2016-06-15] MEDS: MORPHINE SULFATE 4 MG/ML INJ IV PRN (08:19)
[2016-06-15] MEDS: ONDANSETRON HCL 4 MG/2 ML VIAL IVP PRN ×2 (08:19→20:22)
[2016-06-15] MEDS: INSULIN DETEMIR 100 UNITS/ML VIAL SQ SCH ×2 (08:20→20:25)
[2016-06-15] MEDS ORDERED: PHARMACY ORDERED LAB XX ONE (08:45)
[2016-06-15 12:00] VITALS: BP 131/60; PULSE 79; RESP 16; TEMP 96; O2SAT 100
--- NOTE | 2016-06-15 12:01 | HHI.IDPN ---
Subjective Subjective Remarks Notes reviewed Temps ok No change accdg to patient No rash or itching No diarrhea Antibiotics Ancef Lines PIV Past Medical History Hypertension Hyperlipidemia DM II 4 pregnancies and section Past Surgical History Tubal Ligation C Section Allergies: Coded Allergies: No Known Allergies (Unverified , 02/22/16) Objective . Vital Signs Date Time Temp Pulse Resp B/P Pulse Ox O2 Delivery O2 Flow Rate FiO2 06/15/16 08:24 17 06/15/16 08:00 98.1 80 17 113/66 100 06/15/16 00:00 97.4 82 17 109/62 97 06/14/16 20:03 91 06/14/16 20:00 98.0 86 18 115/63 97 06/14/16 16:59 16 06/14/16 16:00 97.1 93 26 121/63 99 06/14/16 12:00 98.0 89 17 117/66 98 06/14/16 06/14/16 06/15/16 15:00 23:00 07:00 Intake Total 240 ml 813 ml 1040 ml Balance 240 ml 813 ml 1040 ml Intake Oral 240 ml 240 ml 240 ml IV Total 573 ml 800 ml # Voids 4 1 3 # Bowel Movements 1 . Laboratory Tests Test 06/13/16 06/14/16 15:05 03:55 White Blood Count 21.0 TH/MM3 14.0 TH/MM3 Red Blood Count 4.59 MIL/MM3 3.76 MIL/MM3 Hemoglobin 11.9 GM/DL 10.0 GM/DL Hematocrit 37.2 % 30.8 % Mean Corpuscular Volume 81.1 FL 82.1 FL Mean Corpuscular Hemoglobin 26.0 PG 26.5 PG Mean Corpuscular Hemoglobin 32.1 % 32.3 % Concent Red Cell Distribution Width 15.6 % 15.5 % Platelet Count 196 TH/MM3 194 TH/MM3 Mean Platelet Volume 9.7 FL 9.8 FL Neutrophils (%) (Auto) 88.9 % 83.7 % Lymphocytes (%) (Auto) 7.6 % 9.5 % Monocytes (%) (Auto) 3.2 % 5.4 % Eosinophils (%) (Auto) 0.0 % 1.1 % Basophils (%) (Auto) 0.3 % 0.3 % Neutrophils # (Auto) 18.6 TH/MM3 11.7 TH/MM3 Lymphocytes # (Auto) 1.6 TH/MM3 1.3 TH/MM3 Monocytes # (Auto) 0.7 TH/MM3 0.8 TH/MM3 Eosinophils # (Auto) 0.0 TH/MM3 0.1 TH/MM3 Basophils # (Auto) 0.1 TH/MM3 0.0 TH/MM3 CBC Comment DIFF FINAL DIFF FINAL Differential Comment Laboratory Tests Test 06/13/16 06/13/16 06/14/16 15:05 15:55 04:18 Sodium Level 134 MEQ/L 138 MEQ/L Potassium Level 3.7 MEQ/L 4.1 MEQ/L Chloride Level 100 MEQ/L 106 MEQ/L Carbon Dioxide Level 25.7 MEQ/L 22.8 MEQ/L Anion Gap 8 MEQ/L 9 MEQ/L Blood Urea Nitrogen 9 MG/DL 9 MG/DL Creatinine 0.98 MG/DL 1.01 MG/DL Estimat Glomerular Filtration 75 ML/MIN 72 ML/MIN Rate Random Glucose 287 MG/DL 221 MG/DL Hemoglobin A1c 9.8 % Calcium Level 9.3 MG/DL 7.8 MG/DL Total Bilirubin 1.1 MG/DL Aspartate Amino Transf 7 U/L (AST/SGOT) Alanine Aminotransferase 14 U/L (ALT/SGPT) Alkaline Phosphatase 79 U/L Total Protein 7.7 GM/DL Albumin 3.0 GM/DL Triglycerides Level 92 MG/DL Cholesterol Level 163 MG/DL LDL Cholesterol 64 MG/DL HDL Cholesterol 80.6 MG/DL Cholesterol/HDL Ratio 2.02 RATIO Lipase 65 U/L Free Thyroxine 1.26 NG/DL Thyroid Stimulating Hormone 1.240 uIU/ML 3rd Gen Lactic Acid Level 2.0 mmol/L Microbiology Date/Time Procedure Status Source Growth 06/13/16 16:00 Aerobic Blood Culture - Preliminary Resulted Blood Line NO GROWTH IN 2 DAYS 06/13/16 16:00 Anaerobic Blood Culture - Preliminary Resulted Blood Line NO GROWTH IN 2 DAYS 06/13/16 16:15 Aerobic Blood Culture - Preliminary Resulted Blood Line NO GROWTH IN 2 DAYS 06/13/16 16:15 Anaerobic Blood Culture - Preliminary Resulted Blood Line NO GROWTH IN 2 DAYS Imaging Last Impressions Lower Extremity Ultrasound 06/13/16 1137 Signed Impressions: Service Date/Time: Monday, June 13, 2016 11:59 - CONCLUSION: No evidence of left lower extremity DVT. Cesar Emanuel MD Abdomen/Pelvis CT 06/13/16 1137 Signed Impressions: Service Date/Time: Monday, June 13, 2016 12:47 - CONCLUSION: 1. No evidence of acute abdominal or pelvic process. No masses are identified. 2. Uterine fibroids Jamal Contreras MD Foot X-Ray 06/13/16 0000 Signed Impressions: Service Date/Time: Monday, June 13, 2016 17:16 - CONCLUSION: Diffuse soft tissue edema. No evidence of fracture. Cesar Emanuel MD Physical Exam GENERAL: This is a morbidly obese, awake and alert, in no apparent distress. SKIN: Cool and dry. No generalized rash or ecchymosis. HEENT: [place] conjunctivae. No scleral icterus. Moist oral mucosa. NECK: Trachea midline. No JVD or lymphadenopathy. Supple, nontender, no meningeal signs. CARDIOVASCULAR: Regular rate and rhythm without murmurs, gallops, or rubs. RESPIRATORY: Clear to auscultation. Breath sounds equal bilaterally. No wheezes , rales, or rhonchi. Decreased breath sounds at the bases. GASTROINTESTINAL: Abdomen obese, soft, non-tender, nondistended. Bowel sounds are present. She has a midline scar compatible with her surgical history. MUSCULOSKELETAL: Lower extremities without clubbing, cyanosis. Has edema BILE. LLE has erythema in left leg, looks better, and edema slightly better. No open wounds, has moisture between all toes L foot; R foot ok. No calf tenderness. NEUROLOGICAL: Non-focal PSYCH: Normal affect, calm and cooperative. LINE: PIV with no evidence of infection Assessment & Plan Remarks IMPRESSION Acute onset LLE redness, pain and swelling, with preceding chills typical of Strep infection - no open wounds - has moisture between toes and possible opening for infection - slightly better Morbid obesity DM RECOMMENDATION Continue IV Ancef Elevate LLE to help with edema Monitor progress Anya Victor MD Jun 15, 2016 12:01
[2016-06-15 16:00] VITALS: BP 117/56; PULSE 78; RESP 17; TEMP 98; O2SAT 100
[2016-06-15 20:00] VITALS: BP 135/75; PULSE 77; PULSE 80; RESP 20; TEMP 97.2; O2SAT 98
[2016-06-15] MEDS: PRAVASTATIN SOD 80 MG TAB PO SCH (20:25)
[2016-06-15] MEDS: ENOXAPARIN SODIUM 40 MG/0.4 ML SYRINGE SQ SCH (20:25)
[2016-06-16 00:05] VITALS: BP 132/69; PULSE 77; RESP 18; TEMP 97.5; O2SAT 99
[2016-06-16] MEDS: ceFAZolin 2 GM PREMIX 50 ML IV SCH ×3 (03:27→21:24)
[2016-06-16] MEDS: SODIUM CHLOR 0.9% 1000 ML INJ 1,000 ML IV SCH ×2 (03:27→11:50)
[2016-06-16] MEDS: INSULIN NovoLIN REGULAR SUPPLEMENTAL SCALE SQ SCH ×4 (06:14→21:20)
[2016-06-16] MEDS: MORPHINE SULFATE 4 MG/ML INJ IV PRN ×3 (06:16→21:24)
[2016-06-16] MEDS: DOCUSATE SODIUM 100 MG CAP PO SCH ×2 (07:47→21:19)
[2016-06-16] MEDS: CARVEDILOL 12.5 MG TAB PO SCH ×2 (07:47→21:20)
[2016-06-16] MEDS: INSULIN DETEMIR 100 UNITS/ML VIAL SQ SCH ×2 (07:48→21:00)
[2016-06-16] MEDS: INSULIN HUMAN REGULAR 1,000 UNITS/10 ML VIAL SQ SCH ×3 (07:48→16:38)
[2016-06-16] MEDS: SODIUM CHLORIDE 0.9% FLUSH 10 ML FLUSH IV FLUSH SCH ×2 (07:48→21:25)
[2016-06-16 08:00] VITALS: BP 130/71; PULSE 82; RESP 18; TEMP 96.8; O2SAT 98
--- NOTE | 2016-06-16 10:14 | HHI.PR ---
Subjective Remarks 46-year-old female with PMH of HTN, HLD, T2DM presents to the ED via EMS for evaluation of 3 day history of constant right-sided flank pain. Gradual onset. She endorses accompanying chills, nausea and right upper quadrant abdominal pain. Patient states this pain is similar to previous urinary tract infection. Also complains of increased swelling of the left lower extremity. Endorses increased walking daily. She denies chest pain, shortness of breath, anorexia, changes in bowel habits, dysuria. She takes 20 mg Lasix daily. Primary care provider is Dr. Tuttle. 06/15 Seen by ID specialist Vancomycin and Zosyn stopped with impression of typical infection for Streptococcus and started on Ancef seen in the room, continue with painful sensation on her left foot. 06/16 Patient seen in her bedroom improving she wants to go home awaiting for final recommendations by ID specialist doctor Kayleigh. No Nausea, vomit or diarrhea. Objective Vital Signs Date Time Temp Pulse Resp B/P Pulse Ox O2 Delivery O2 Flow Rate FiO2 06/16/16 08:00 96.8 82 18 130/71 98 06/16/16 00:05 97.5 77 18 132/69 99 06/15/16 20:00 97.2 77 20 135/75 98 06/15/16 20:00 80 06/15/16 16:15 17 06/15/16 16:00 98.0 78 17 117/56 100 06/15/16 12:00 96.0 79 16 131/60 100 I/O 06/15/16 06/15/16 06/15/16 06/16/16 06/16/16 06/16/16 07:00 15:00 23:00 07:00 15:00 23:00 Intake Total 1040 ml 1480 ml 940 ml 1216 ml Balance 1040 ml 1480 ml 940 ml 1216 ml Intake Oral 240 ml 840 ml 240 ml 240 ml IV Total 800 ml 640 ml 700 ml 976 ml # Voids 3 6 1 # Bowel Movements 1 Result Diagram: 06/14/16 0355 06/14/16 0418 Imaging Last Impressions Lower Extremity Ultrasound 06/13/16 1137 Signed Impressions: Service Date/Time: Monday, June 13, 2016 11:59 - CONCLUSION: No evidence of left lower extremity DVT. Cesar Emanuel MD Abdomen/Pelvis CT 06/13/16 1137 Signed Impressions: Service Date/Time: Monday, June 13, 2016 12:47 - CONCLUSION: 1. No evidence of acute abdominal or pelvic process. No masses are identified. 2. Uterine fibroids Jamal Contreras MD Foot X-Ray 06/13/16 0000 Signed Impressions: Service Date/Time: Monday, June 13, 2016 17:16 - CONCLUSION: Diffuse soft tissue edema. No evidence of fracture. Cesar Emanuel MD Procedures No procedures performed to the patient Other Results Laboratory Tests Test 06/13/16 06/13/16 06/13/16 06/14/16 15:05 15:55 18:06 03:55 Hemoglobin A1c 9.8 % Total Bilirubin 1.1 MG/DL Aspartate Amino Transf 7 U/L (AST/SGOT) Alanine Aminotransferase 14 U/L (ALT/SGPT) Alkaline Phosphatase 79 U/L Total Protein 7.7 GM/DL Albumin 3.0 GM/DL Triglycerides Level 92 MG/DL Cholesterol Level 163 MG/DL LDL Cholesterol 64 MG/DL HDL Cholesterol 80.6 MG/DL Cholesterol/HDL Ratio 2.02 RATIO Lipase 65 U/L Free Thyroxine 1.26 NG/DL Thyroid Stimulating Hormone 1.240 uIU/ML 3rd Gen Lactic Acid Level 2.0 mmol/L Urine Color YELLOW Urine Turbidity HAZY Urine pH 5.0 Urine Specific [place] 1.025 Urine Protein NEG mg/dL Urine Glucose (UA) 1000 mg/dL Urine Ketones NEG mg/dL Urine Occult Blood NEG Urine Nitrite NEG Urine Bilirubin NEG Urine Urobilinogen LESS THAN 2.0 MG/DL Urine Leukocyte Esterase NEG Urine RBC LESS THAN 1 /hpf Urine WBC 1 /hpf Urine Squamous Epithelial <1 /hpf Cells Urine Mucus FEW /lpf Microscopic Urinalysis Comment CULT NOT INDICATED White Blood Count 14.0 TH/MM3 Red Blood Count 3.76 MIL/MM3 Hemoglobin 10.0 GM/DL Hematocrit 30.8 % Mean Corpuscular Volume 82.1 FL Mean Corpuscular Hemoglobin 26.5 PG Mean Corpuscular Hemoglobin 32.3 % Concent Red Cell Distribution Width 15.5 % Platelet Count 194 TH/MM3 Mean Platelet Volume 9.8 FL Neutrophils (%) (Auto) 83.7 % Lymphocytes (%) (Auto) 9.5 % Monocytes (%) (Auto) 5.4 % Eosinophils (%) (Auto) 1.1 % Basophils (%) (Auto) 0.3 % Neutrophils # (Auto) 11.7 TH/MM3 Lymphocytes # (Auto) 1.3 TH/MM3 Monocytes # (Auto) 0.8 TH/MM3 Eosinophils # (Auto) 0.1 TH/MM3 Basophils # (Auto) 0.0 TH/MM3 CBC Comment DIFF FINAL Differential Comment Prothrombin Time 12.8 SEC Prothromb Time International 1.2 RATIO Ratio Test 06/14/16 04:18 Sodium Level 138 MEQ/L Potassium Level 4.1 MEQ/L Chloride Level 106 MEQ/L Carbon Dioxide Level 22.8 MEQ/L Anion Gap 9 MEQ/L Blood Urea Nitrogen 9 MG/DL Creatinine 1.01 MG/DL Estimat Glomerular Filtration 72 ML/MIN Rate Random Glucose 221 MG/DL Calcium Level 7.8 MG/DL Objective Remarks GENERAL: Morbid Obese patient in no acute distress. SKIN: Focused skin assessment warm/dry. HEAD: Normocephalic. EYES: No scleral icterus. No injection or drainage. NECK: Supple, trachea midline. No JVD or lymphadenopathy. CARDIOVASCULAR: Regular rate and rhythm without murmurs, gallops, or rubs. RESPIRATORY: Breath sounds clear and equal bilaterally. No accessory muscle use. GASTROINTESTINAL: Abdomen soft, protuberant, nondistended. Tender to palpation on the right upper quadrant. Active bowel sounds. MUSCULOSKELETAL: No cyanosis.3+ edema, Improving her symptoms fast. Medications and IVs Current Medications Medications (Trade) Dose Ordered Sig/Maykel Route Start Time Stop Time Status Last Admin (Coreg) 12.5 mg BID PO 06/13/16 21:00 06/16/16 07:47 Pravastatin Sodium 80 mg 80 mg HS PO 06/13/16 21:00 06/15/16 20:25 (NS 1000 ml Inj) 1,000 ml @ 100 mls/hr Q10H IV 06/13/16 16:11 06/16/16 03:27 (Tylenol) 650 mg Q4H PRN PO 06/13/16 16:15 (Zofran Inj) 4 mg Q6H PRN IVP 06/13/16 16:15 06/15/16 20:22 (Dulcolax Supp) 10 mg DAILY PRN NV 06/13/16 16:15 (Colace) 100 mg Q12H PO 06/13/16 21:00 06/16/16 07:47 (Lovenox Inj) 40 mg Q24H SQ 06/13/16 20:00 06/15/16 20:25 (NS Flush) 2 ml UNSCH PRN IV FLUSH 06/13/16 16:15 (NS Flush) 2 ml BID IV FLUSH 06/13/16 21:00 06/16/16 07:48 (Narcan Inj) 0.4 mg UNSCH PRN IV 06/13/16 16:15 (Roxicodone) 10 mg Q4H PRN PO 06/13/16 22:45 06/16/16 09:13 (Morphine Inj) 4 mg Q3H PRN IV 06/13/16 22:45 06/16/16 06:16 (Roxicodone) 5 mg Q4H PRN PO 06/13/16 22:45 06/15/16 04:44 (Levemir Inj) 10 units Q12HR SQ 06/14/16 09:00 06/15/16 08:20 Insulin Human Regular 5 units 5 units TIDAC SQ 06/14/16 12:00 06/16/16 07:48 (Ancef 2 Gm Premix) 50 ml @ 100 mls/hr Q8H IV 06/14/16 13:00 06/16/16 03:27 A/P Assessment and Plan 1. Sepsis/Cellulitis of the left lower extremity she has Leukocytosis with left shift, tachycardia, known source of infection, has left leg edema and cellulitis low grade fever, was started on Vancomycin and Zosyn and following blood cultures, US of LLE: negative for DVT per radiology read. also no signs of fracture, as per ID specialist recommended to continue Ancef today recommended if MRI with no pockets of infection, will go home on Keflex by mouth for 10 days. 2. Ruled out Fracture. 3. Morbid Obesity will weight loss warranted. recommended diet and exercise as outpatient 4. Abdominal pain had CT abd/pelvis: 1. No evidence of acute abdominal or pelvic process. No masses identified. 2. Uterine fibroids. Results per radiology read. 5. Hypertension controlled was held her Coreg in am due to low blood pressure will follow and placed parameters. 6. DM II continue sliding scale, Better control, she has Poorly controlled Diabetes mellitus II continued on Levemir 8 units BID and 5 units with meals, Hemoglobin A1C 9.8 DVT prophylaxis with Lovenox. Blood culture Negative. Discussed with Patient and nurse. Code Status Full Code. Discharge Planning Expected later today or in am tomorrow. Jason Leone MD Jun 16, 2016 10:14 Jason Leone MD Jun 16, 2016 10:14
[2016-06-16 12:00] VITALS: BP 115/54; PULSE 80; RESP 17; TEMP 97; O2SAT 97
--- NOTE | 2016-06-16 13:02 | HHI.IDPN ---
Subjective Subjective Remarks Notes reviewed Temps ok Still with pain on top of foot and anterior leg Able to ambulate No rash or itching No diarrhea Antibiotics Ancef Lines PIV Past Medical History Hypertension Hyperlipidemia DM II 4 pregnancies and section Past Surgical History Tubal Ligation C Section Allergies: Coded Allergies: No Known Allergies (Unverified , 02/22/16) Objective . Vital Signs Date Time Temp Pulse Resp B/P Pulse Ox O2 Delivery O2 Flow Rate FiO2 06/16/16 12:00 97.0 80 17 115/54 97 06/16/16 10:13 17 06/16/16 08:00 96.8 82 18 130/71 98 06/16/16 00:05 97.5 77 18 132/69 99 06/15/16 20:00 97.2 77 20 135/75 98 06/15/16 20:00 80 06/15/16 16:00 98.0 78 17 117/56 100 06/15/16 06/15/16 06/16/16 15:00 23:00 07:00 Intake Total 1480 ml 940 ml 1216 ml Balance 1480 ml 940 ml 1216 ml Intake Oral 840 ml 240 ml 240 ml IV Total 640 ml 700 ml 976 ml # Voids 6 1 # Bowel Movements 1 . Microbiology Date/Time Procedure Status Source Growth 06/13/16 16:00 Aerobic Blood Culture - Preliminary Resulted Blood Line NO GROWTH IN 3 DAYS 06/13/16 16:00 Anaerobic Blood Culture - Preliminary Resulted Blood Line NO GROWTH IN 3 DAYS 06/13/16 16:15 Aerobic Blood Culture - Preliminary Resulted Blood Line NO GROWTH IN 3 DAYS 06/13/16 16:15 Anaerobic Blood Culture - Preliminary Resulted Blood Line NO GROWTH IN 3 DAYS Imaging Last Impressions Lower Extremity Ultrasound 06/13/16 1137 Signed Impressions: Service Date/Time: Monday, June 13, 2016 11:59 - CONCLUSION: No evidence of left lower extremity DVT. Cesar Emanuel MD Abdomen/Pelvis CT 06/13/16 1137 Signed Impressions: Service Date/Time: Monday, June 13, 2016 12:47 - CONCLUSION: 1. No evidence of acute abdominal or pelvic process. No masses are identified. 2. Uterine fibroids Jamal Contreras MD Foot X-Ray 06/13/16 0000 Signed Impressions: Service Date/Time: Monday, June 13, 2016 17:16 - CONCLUSION: Diffuse soft tissue edema. No evidence of fracture. Csear Emanuel MD Physical Exam GENERAL: awake and alert, in no apparent distress. SKIN: Cool and dry. No generalized rash or ecchymosis. HEENT: [place] conjunctivae. No scleral icterus. Moist oral mucosa. NECK: Trachea midline. No JVD or lymphadenopathy. Supple, nontender, no meningeal signs. CARDIOVASCULAR: Regular rate and rhythm without murmurs, gallops, or rubs. RESPIRATORY: Clear to auscultation. Breath sounds equal bilaterally. No wheezes , rales, or rhonchi. Decreased breath sounds at the bases. GASTROINTESTINAL: Abdomen obese, soft, non-tender, nondistended. Bowel sounds are present. She has a midline scar compatible with her surgical history. MUSCULOSKELETAL: Lower extremities without clubbing, cyanosis. Has edema BILE. LLE has erythema in left leg much improved. Tender on palpation of distal anterior leg, ?with some ecchymotic changes, indurated, no crepitus. No open wounds. R foot ok. No calf tenderness. NEUROLOGICAL: Non-focal PSYCH: Normal affect, calm and cooperative. LINE: PIV with no evidence of infection Assessment & Plan Remarks IMPRESSION Acute onset LLE redness, pain and swelling, with preceding chills typical of Strep infection - no open wounds - has moisture between toes and possible opening for infection - slightly better Morbid obesity DM RECOMMENDATION Continue IV Ancef MRI L leg - if no pocket of fluid, should be ok to D/C on po Keflex 500 QID x 10 days Elevate LLE to help with edema Monitor progress Explained plan to patient Anya Victor MD Jun 16, 2016 13:02
[2016-06-16] MEDS: ONDANSETRON HCL 4 MG/2 ML VIAL IVP PRN (13:42)
[2016-06-16] MEDS ORDERED: GADODIAMIDE PF 287 MG/ML 10 ML VIAL (for RAD MRI) IV ONE (15:56)
[2016-06-16 16:00] VITALS: BP 142/77; PULSE 85; RESP 16; TEMP 96.7; O2SAT 95
--- NOTE | 2016-06-16 16:28 | RADRPT ---
EXAM DATE/TIME: 06/16/2016 14:44 [facility] COMPARISON: No previous studies available for comparison. INDICATIONS : Cellulitis. CONTRAST: 30 cc Omniscan (gadodiamide) IV MEDICAL HISTORY : Hypertension. Diabetes mellitus type 2. SURGICAL HISTORY : section. Tubal ligation. ENCOUNTER: Initial ACUITY: 3 day PAIN SCORE: 4/10 LOCATION: Left leg TECHNIQUE: Multiplanar multisequence MRI examination of the lower leg was performed with and without contrast. FINDINGS: There is findings of subcutaneous edema and cellulitis without evidence of myositis or abscess. No fo devin areas of marrow placement are identified. The neurovascular bundle is intact. No tendon abnormali ty is identified. Following the measures of contrast there is linear enhancement in the subcutaneous tissues characteristic of cellulitis. CONCLUSION: 1. Cellulitis without evidence of abscess or osteomyelitis. Jamal Contreras MD on June 16, 2016 at 16:24 Board Certified Radiologist. This report was verified electronically.
[2016-06-16 20:00] VITALS: BP 144/73; PULSE 82; RESP 20; TEMP 97.4; O2SAT 99
[2016-06-16 21:15] VITALS: PULSE 77
[2016-06-16] MEDS: PRAVASTATIN SOD 80 MG TAB PO SCH (21:19)
[2016-06-16] MEDS: ENOXAPARIN SODIUM 40 MG/0.4 ML SYRINGE SQ SCH (21:19)
[2016-06-17] VITALS: BP 100/58; PULSE 83; RESP 18; TEMP 97.4; O2SAT 96
[2016-06-17] MEDS: SODIUM CHLOR 0.9% 1000 ML INJ 1,000 ML IV SCH ×2 (00:15→09:53)
[2016-06-17] MEDS: ceFAZolin 2 GM PREMIX 50 ML IV SCH ×2 (05:25→11:52)
[2016-06-17] MEDS: INSULIN NovoLIN REGULAR SUPPLEMENTAL SCALE SQ SCH ×2 (05:59→11:53)
[2016-06-17 08:00] VITALS: BP 130/61; PULSE 87; RESP 19; TEMP 97.6; O2SAT 96
[2016-06-17] MEDS: INSULIN HUMAN REGULAR 1,000 UNITS/10 ML VIAL SQ SCH ×2 (08:49→11:55)
[2016-06-17] MEDS: INSULIN DETEMIR 100 UNITS/ML VIAL SQ SCH (08:50)
[2016-06-17] MEDS: CARVEDILOL 12.5 MG TAB PO SCH (08:51)
[2016-06-17] MEDS: DOCUSATE SODIUM 100 MG CAP PO SCH (08:51)
[2016-06-17] MEDS: MORPHINE SULFATE 4 MG/ML INJ IV PRN (08:57)
[2016-06-17] MEDS: SODIUM CHLORIDE 0.9% FLUSH 10 ML FLUSH IV FLUSH SCH (09:00)
[2016-06-17 12:00] VITALS: BP 113/56; PULSE 80; RESP 19; TEMP 97.8; O2SAT 97
--- NOTE | 2016-06-17 13:31 | HHI.PR ---
Subjective Remarks 46-year-old female with PMH of HTN, HLD, T2DM presents to the ED via EMS for evaluation of 3 day history of constant right-sided flank pain. Gradual onset. She endorses accompanying chills, nausea and right upper quadrant abdominal pain. Patient states this pain is similar to previous urinary tract infection. Also complains of increased swelling of the left lower extremity. Endorses increased walking daily. She denies chest pain, shortness of breath, anorexia, changes in bowel habits, dysuria. She takes 20 mg Lasix daily. Primary care provider is Dr. Tuttle. 06/15 Seen by ID specialist Vancomycin and Zosyn stopped with impression of typical infection for Streptococcus and started on Ancef seen in the room, continue with painful sensation on her left foot. 06/16 Patient seen in her bedroom improving she wants to go home, as per ID asked for MRI of the leg and will follow if no evident of Pocket lesions of fluid will discharge Home. 06/17 Stable MRI of the leg seen did not found pathology no abscess, no fluid lesions will discharge home, No nausea, vomit or diarrhea. Objective Vital Signs Date Time Temp Pulse Resp B/P Pulse Ox O2 Delivery O2 Flow Rate FiO2 06/17/16 12:00 97.8 80 19 113/56 97 06/17/16 08:00 97.6 87 19 130/61 96 06/17/16 00:00 97.4 83 18 100/58 96 06/16/16 21:32 18 06/16/16 21:15 77 06/16/16 20:00 97.4 82 20 144/73 99 06/16/16 16:00 96.7 85 16 142/77 95 06/16/16 14:41 19 I/O 06/16/16 06/16/16 06/16/16 06/17/16 06/17/16 06/17/16 07:00 15:00 23:00 07:00 15:00 23:00 Intake Total 1216 ml 1427 ml 989 ml 860 ml 240 ml Output Total 0 ml Balance 1216 ml 1427 ml 989 ml 860 ml 240 ml Intake Oral 240 ml 720 ml 360 ml 240 ml IV Total 976 ml 707 ml 629 ml 860 ml Output Urine Total 0 ml # Voids 4 5 # Bowel Movements 0 3 0 Result Diagram: 06/14/16 0355 06/14/16 0418 Imaging Last Impressions Lower Extremity MRI 06/16/16 0000 Signed Impressions: Service Date/Time: Thursday, June 16, 2016 14:44 - CONCLUSION: 1. Cellulitis without evidence of abscess or osteomyelitis. Jamal Contreras MD Lower Extremity Ultrasound 06/13/16 1137 Signed Impressions: Service Date/Time: Monday, June 13, 2016 11:59 - CONCLUSION: No evidence of left lower extremity DVT. Cesar Emanuel MD Abdomen/Pelvis CT 06/13/16 1137 Signed Impressions: Service Date/Time: Monday, June 13, 2016 12:47 - CONCLUSION: 1. No evidence of acute abdominal or pelvic process. No masses are identified. 2. Uterine fibroids Jamal Contreras MD Foot X-Ray 06/13/16 0000 Signed Impressions: Service Date/Time: Monday, June 13, 2016 17:16 - CONCLUSION: Diffuse soft tissue edema. No evidence of fracture. Cesar Emanuel MD Procedures No procedures performed to the patient Other Results Laboratory Tests Test 06/13/16 06/13/16 06/13/16 06/14/16 15:05 15:55 18:06 03:55 Hemoglobin A1c 9.8 % Total Bilirubin 1.1 MG/DL Aspartate Amino Transf 7 U/L (AST/SGOT) Alanine Aminotransferase 14 U/L (ALT/SGPT) Alkaline Phosphatase 79 U/L Total Protein 7.7 GM/DL Albumin 3.0 GM/DL Triglycerides Level 92 MG/DL Cholesterol Level 163 MG/DL LDL Cholesterol 64 MG/DL HDL Cholesterol 80.6 MG/DL Cholesterol/HDL Ratio 2.02 RATIO Lipase 65 U/L Free Thyroxine 1.26 NG/DL Thyroid Stimulating Hormone 1.240 uIU/ML 3rd Gen Lactic Acid Level 2.0 mmol/L Urine Color YELLOW Urine Turbidity HAZY Urine pH 5.0 Urine Specific [place] 1.025 Urine Protein NEG mg/dL Urine Glucose (UA) 1000 mg/dL Urine Ketones NEG mg/dL Urine Occult Blood NEG Urine Nitrite NEG Urine Bilirubin NEG Urine Urobilinogen LESS THAN 2.0 MG/DL Urine Leukocyte Esterase NEG Urine RBC LESS THAN 1 /hpf Urine WBC 1 /hpf Urine Squamous Epithelial <1 /hpf Cells Urine Mucus FEW /lpf Microscopic Urinalysis Comment CULT NOT INDICATED White Blood Count 14.0 TH/MM3 Red Blood Count 3.76 MIL/MM3 Hemoglobin 10.0 GM/DL Hematocrit 30.8 % Mean Corpuscular Volume 82.1 FL Mean Corpuscular Hemoglobin 26.5 PG Mean Corpuscular Hemoglobin 32.3 % Concent Red Cell Distribution Width 15.5 % Platelet Count 194 TH/MM3 Mean Platelet Volume 9.8 FL Neutrophils (%) (Auto) 83.7 % Lymphocytes (%) (Auto) 9.5 % Monocytes (%) (Auto) 5.4 % Eosinophils (%) (Auto) 1.1 % Basophils (%) (Auto) 0.3 % Neutrophils # (Auto) 11.7 TH/MM3 Lymphocytes # (Auto) 1.3 TH/MM3 Monocytes # (Auto) 0.8 TH/MM3 Eosinophils # (Auto) 0.1 TH/MM3 Basophils # (Auto) 0.0 TH/MM3 CBC Comment DIFF FINAL Differential Comment Prothrombin Time 12.8 SEC Prothromb Time International 1.2 RATIO Ratio Test 06/14/16 04:18 Sodium Level 138 MEQ/L Potassium Level 4.1 MEQ/L Chloride Level 106 MEQ/L Carbon Dioxide Level 22.8 MEQ/L Anion Gap 9 MEQ/L Blood Urea Nitrogen 9 MG/DL Creatinine 1.01 MG/DL Estimat Glomerular Filtration 72 ML/MIN Rate Random Glucose 221 MG/DL Calcium Level 7.8 MG/DL Objective Remarks GENERAL: Morbid Obese patient in no acute distress. SKIN: Focused skin assessment warm/dry. HEAD: Normocephalic. EYES: No scleral icterus. No injection or drainage. NECK: Supple, trachea midline. No JVD or lymphadenopathy. CARDIOVASCULAR: Regular rate and rhythm without murmurs, gallops, or rubs. RESPIRATORY: Breath sounds clear and equal bilaterally. No accessory muscle use. GASTROINTESTINAL: Abdomen soft, protuberant, nondistended. Tender to palpation on the right upper quadrant. Active bowel sounds. MUSCULOSKELETAL: No cyanosis.3+ edema, Improving her symptoms fast. Medications and IVs Current Medications Medications (Trade) Dose Ordered Sig/Maykel Route Start Time Stop Time Status Last Admin (Coreg) 12.5 mg BID PO 06/13/16 21:00 06/17/16 08:51 Pravastatin Sodium 80 mg 80 mg HS PO 06/13/16 21:00 06/16/16 21:19 (NS 1000 ml Inj) 1,000 ml @ 100 mls/hr Q10H IV 06/13/16 16:11 06/17/16 09:53 (Tylenol) 650 mg Q4H PRN PO 06/13/16 16:15 (Zofran Inj) 4 mg Q6H PRN IVP 06/13/16 16:15 06/16/16 13:42 (Dulcolax Supp) 10 mg DAILY PRN WI 06/13/16 16:15 (Colace) 100 mg Q12H PO 06/13/16 21:00 06/17/16 08:51 (Lovenox Inj) 40 mg Q24H SQ 06/13/16 20:00 06/16/16 21:19 (NS Flush) 2 ml UNSCH PRN IV FLUSH 06/13/16 16:15 (NS Flush) 2 ml BID IV FLUSH 06/13/16 21:00 06/17/16 09:00 (Narcan Inj) 0.4 mg UNSCH PRN IV 06/13/16 16:15 (Roxicodone) 10 mg Q4H PRN PO 06/13/16 22:45 06/17/16 09:54 (Morphine Inj) 4 mg Q3H PRN IV 06/13/16 22:45 06/17/16 08:57 (Roxicodone) 5 mg Q4H PRN PO 06/13/16 22:45 06/16/16 13:41 Insulin Human Regular 5 units 5 units TIDAC SQ 06/14/16 12:00 06/17/16 08:49 (Ancef 2 Gm Premix) 50 ml @ 100 mls/hr Q8H IV 06/14/16 13:00 06/17/16 11:52 (Levemir Inj) 8 units Q12HR SQ 06/16/16 21:00 A/P Assessment and Plan 1. Sepsis/Cellulitis of the left lower extremity she has Leukocytosis with left shift, tachycardia, known source of infection, has left leg edema and cellulitis low grade fever, was started on Vancomycin and Zosyn and following blood cultures, US of LLE: negative for DVT per radiology read. also no signs of fracture, as per ID specialist recommended to continue Ancef new MR of the leg no abscess or Osteomyelitis will go home on Keflex by mouth for 10 days. 2. Ruled out Fracture. 3. Morbid Obesity will weight loss warranted. recommended diet and exercise as outpatient 4. Abdominal pain had CT abd/pelvis: 1. No evidence of acute abdominal or pelvic process. No masses identified. 2. Uterine fibroids. Results per radiology read. 5. Hypertension controlled 6. DM II continue sliding scale, Better control, she has Poorly controlled Diabetes mellitus II continued on Levemir 8 units BID and 5 units with meals, Hemoglobin A1C 9.8, continue home medicines. DVT prophylaxis with Lovenox. Blood culture Negative. Discussed with Patient and nurse. Code Status Full Code. Discharge Planning Discharge Home now. Jason Leone MD Jun 17, 2016 13:31
[2016-06-17] MEDS ORDERED: CEPH-460 PO (13:39)
[2016-06-17] MEDS ORDERED: HYDR-3533 PO (13:39)
--- NOTE | 2016-06-17 13:42 | HHI.DS ---
Discharge Summary Admission Date Jun 13, 2016 at 16:16 Discharge Date: Jun 17, 2016 Admitting Diagnosis sepsis, cellulitis LLE (1) Cellulitis of left lower extremity ICD Code: L03.116 Diagnosis: Principal (2) Diabetes mellitus ICD Code: E11.9 Diagnosis: Secondary (3) Morbid obesity ICD Code: E66.01 Diagnosis: Secondary Procedures No procedures performed. Brief History - From Admission 46-year-old female with PMH of HTN, HLD, T2DM presents to the ED via EMS for evaluation of 3 day history of constant right-sided flank pain. Gradual onset. She endorses accompanying chills, nausea and right upper quadrant abdominal pain. Patient states this pain is similar to previous urinary tract infection. Also complains of increased swelling of the left lower extremity. Endorses increased walking daily. She denies chest pain, shortness of breath, anorexia, changes in bowel habits, dysuria. She takes 20 mg Lasix daily. Primary care provider is Dr. Tuttle. As per patient states she woke up this morning with left leg pain and was erythematous and with worsening edema, she went to see her PCP who sent her to ER for evaluation. she has low grade fever. CBC/BMP: 06/14/16 0355 06/14/16 0418 Imaging Last Impressions Lower Extremity MRI 06/16/16 0000 Signed Impressions: Service Date/Time: Thursday, June 16, 2016 14:44 - CONCLUSION: 1. Cellulitis without evidence of abscess or osteomyelitis. Jamal Contreras MD Lower Extremity Ultrasound 06/13/16 1137 Signed Impressions: Service Date/Time: Monday, June 13, 2016 11:59 - CONCLUSION: No evidence of left lower extremity DVT. Cesar Emanuel MD Abdomen/Pelvis CT 06/13/16 1137 Signed Impressions: Service Date/Time: Monday, June 13, 2016 12:47 - CONCLUSION: 1. No evidence of acute abdominal or pelvic process. No masses are identified. 2. Uterine fibroids Jamal Contreras MD Foot X-Ray 06/13/16 0000 Signed Impressions: Service Date/Time: Monday, June 13, 2016 17:16 - CONCLUSION: Diffuse soft tissue edema. No evidence of fracture. Cesar Emanuel MD PE at Discharge GENERAL: Morbid Obese patient in no acute distress. SKIN: Focused skin assessment warm/dry. HEAD: Normocephalic. EYES: No scleral icterus. No injection or drainage. NECK: Supple, trachea midline. No JVD or lymphadenopathy. CARDIOVASCULAR: Regular rate and rhythm without murmurs, gallops, or rubs. RESPIRATORY: Breath sounds clear and equal bilaterally. No accessory muscle use. GASTROINTESTINAL: Abdomen soft, protuberant, nondistended. Tender to palpation on the right upper quadrant. Active bowel sounds. MUSCULOSKELETAL: No cyanosis.3+ edema, Improving her symptoms fast. Hospital Course 46-year-old female with PMH of HTN, HLD, T2DM presents to the ED via EMS for evaluation of 3 day history of constant right-sided flank pain. Gradual onset. She endorses accompanying chills, nausea and right upper quadrant abdominal pain. Patient states this pain is similar to previous urinary tract infection. Also complains of increased swelling of the left lower extremity. Endorses increased walking daily. She denies chest pain, shortness of breath, anorexia, changes in bowel habits, dysuria. She takes 20 mg Lasix daily. Primary care provider is Dr. Tuttle. 06/15 Seen by ID specialist Vancomycin and Zosyn stopped with impression of typical infection for Streptococcus and started on Ancef seen in the room, continue with painful sensation on her left foot. 06/16 Patient seen in her bedroom improving she wants to go home, as per ID asked for MRI of the leg and will follow if no evident of Pocket lesions of fluid will discharge Home. 06/17 Stable MRI of the leg seen did not found pathology no abscess, no fluid lesions will discharge home, No nausea, vomit or diarrhea. Assessment and Plan 1. Sepsis/Cellulitis of the left lower extremity she has Leukocytosis with left shift, tachycardia, known source of infection, has left leg edema and cellulitis low grade fever, was started on Vancomycin and Zosyn and following blood cultures, US of LLE: negative for DVT per radiology read. also no signs of fracture, as per ID specialist recommended to continue Ancef new MR of the leg no abscess or Osteomyelitis will go home on Keflex by mouth for 10 days. 2. Ruled out Fracture. 3. Morbid Obesity will weight loss warranted. recommended diet and exercise as outpatient 4. Abdominal pain had CT abd/pelvis: 1. No evidence of acute abdominal or pelvic process. No masses identified. 2. Uterine fibroids. Results per radiology read. 5. Hypertension controlled 6. DM II continue sliding scale, Better control, she has Poorly controlled Diabetes mellitus II continued on Levemir 8 units BID and 5 units with meals, Hemoglobin A1C 9.8, continue home medicines. DVT prophylaxis with Lovenox. Blood culture Negative. Discussed with Patient and nurse. Code Status Full Code. Discharge Planning Discharge Home now. Pt Condition on Discharge: Good Discharge Disposition: Discharge Home Discharge Time: <= 30 minutes Discharge Instructions DIET: Follow Instructions for: Heart Healthy Diet, Diabetic Diet Activities you can perform: Regular-No Restrictions Jason Leone MD Jun 17, 2016 13:42
== END 2016-06-17 15:07 | disposition home or self-care (01) | DRG 872 ==
LOC: NEDAMB 11:10 → NEDA 16:16 → N07B 21:08
PROVIDERS: ADMIT Internal Medicine; ATTEND Internal Medicine
DX: A40.9 Streptococcal sepsis, unspecified (principal); E11.65 Type 2 diabetes mellitus with hyperglycemia; I10 Essential (primary) hypertension; Z68.44 Body mass index [BMI] 60.0-69.9, adult; L03.116 Cellulitis of left lower limb; E66.01 Morbid (severe) obesity due to excess calories; E78.5 Hyperlipidemia, unspecified; R60.0 Localized edema; F10.10 Alcohol abuse, uncomplicated; D25.9 Leiomyoma of uterus, unspecified; R10.11 Right upper quadrant pain; Z79.84 Long term (current) use of oral hypoglycemic drugs; Z82.49 Family history of ischemic heart disease and other diseases of the circulatory system; Z83.3 Family history of diabetes mellitus
CPT/HCPCS: 73630; 73720; 74176; 76937; 80048; 80053; 80061; 81001; 82948; 83036; 83605; 83690; 84439; 84443; 85025; 85610; 87040; 93971; 96361; 96374; 96375; A9579; J0690; J1650; J1815; J2270; J2405; J2543; J3370; J7030; J7040; J7050